=== PATIENT | male | born 1935 | race Caucasian/White ===

== ENCOUNTER 2021-02-08 13:48 | Observation (INO) | payer MEDICARE ==
[~2021-02-08] VITALS: Ht 175.3 cm; Wt 74.1 kg
[~2021-02-08 13:48] MED LIST: ATOR10TA PO; CHOL10003 PO; DEXT350P PO; OMEP20CA16 PO; [UNRECOGNIZED DRUG - CODE] PO
[2021-02-08 14:30] LABS: BASO % 0 % (0-3); EOS % 0 % (0-3); HEMATOCRIT 42.2 % (39.0-53.0); HEMOGLOBIN 14.2 g/dL (13.0-17.5); LYMPH # 2.3 x10^3/uL (1.0-4.8); LYMPH % 19 % (24-48); MEAN CORPUSCULAR HEMOGLOBIN 33 pg (25-35); MEAN CORPUSCULAR HGB CONC 34 g/dL (31-37); MEAN CORPUSCULAR VOLUME 98 fL (79-100); MONO # 1.3 x10^3/uL (0.0-1.1); MONO % 11 % (0-9); NEUT # 8.4 x10^3/uL (1.8-7.7); NEUT % 70 % (31-73); PLATELET COUNT 171 x10^3/uL (140-400); RED BLOOD COUNT 4.31 x10^6/uL (4.30-5.70); RED CELL DISTRIBUTION WIDTH 14.5 % (11.5-14.5)
[2021-02-08] MEDS ORDERED: ADENOSINE 6 MG/2 ML VIAL. IV ONE ×2 (14:30→16:30)
[2021-02-08 14:44] LABS: CALCIUM 8.3 mg/dL (8.5-10.1); CREATININE 1.5 mg/dL (0.7-1.3); GFR 44.4; POTASSIUM 3.8 mmol/L (3.5-5.1)
[2021-02-08] MEDS ORDERED: IV NORMAL SALINE 1000ML BAG 1,000 ML IV ONE (14:45)
[2021-02-08 14:49] LABS: ALBUMIN 3.4 g/dL (3.4-5.0); ALBUMIN/GLOBULIN RATIO 0.9 (1.0-1.7); TOTAL BILIRUBIN 0.7 mg/dL (0.2-1.0); TOTAL PROTEIN 7.1 g/dL (6.4-8.2)
--- NOTE | 2021-02-08 14:58 | RAD ---
CT Head W/O Contrast: History: Reason: syncope, hit head on floor / Spl. Instructions: / History: Comparison: none Axial images were obtained without contrast. There is moderate diffuse atrophy. There is no mass effect, extraaxial fluid collections or hydrocep halus. There is no gross bleed. Mild to moderate, patchy periventricular and subcortical white matte r hypoattenuation is seen. There is no focal loss of blakely-white matter distinction to suggest acute ischemia, i.e. stroke. There is a scalp hematoma posteriorly on the left Impression: No acute intracranial findings. End impression CT C-Spine without contrast: Clinical History: Reason: syncope, hit head on floor / Spl. Instructions: / History: Technique: Axial helical images of the cervical spine were obtained without contrast, axial coronal and sagittal reconstruction was performed. Findings: There is no loss of vertebral body stature. There is no prevertebral soft tissue swelling. The vert ebral bodies are well aligned. The C1-C2 relationship is normal. The visualized osseous structures a ppear normal. Evaluation of the central canal is limited without contrast. There is multiple posterio r disc bulges resulting in flattening of the thecal sac. There does not appear to be gross flattening of the cervical cord. There is marked narrowing of multiple neuroforamen. Impression: No acute findings. Clinical correlation suggested. PQRS Compliance Statement: One or more of the following individualized dose reduction techniques were utilized for this examinat ion: 1. Automated exposure control 2. Adjustment of the mA and/or kV according to patient size 3. Use of iterative reconstruction technique Electronically signed by: Hilario Hurst III, MD (02/08/2021 2:55 PM) [facility]
--- NOTE | 2021-02-08 15:15 | RAD ---
Single AP view of the chest. Comparison: None. Indication: Syncope and shortness of air Findings: The aorta is tortuous. The heart is not enlarged. There is no pneumothorax or effusion. No air space or interstitial disease. Impression: 1. No acute cardiopulmonary process. Electronically signed by: Danny Markham MD (02/08/2021 3:13 PM) [id number]
[2021-02-08] MEDS ORDERED: METOPROLOL IV PUSH 5 MG/5 ML VIAL. IVP ONE ×2 (16:00→19:45)
--- NOTE | 2021-02-08 16:33 | PHYS DOC ---
Past Medical History Past Medical History: High Cholesterol, Seizure Past Surgical History: No Surgical History Smoking Status: Former Smoker Alcohol Use: None General Adult EDM: Chief Complaint: ALTERED MENTAL STATUS HPI: HPI: Patient is a 85 year old male who was brought here by EMS from a local restaurant after he had a syncopal episode. Per EMS report patient stood up from a standing position, and then just collapsed and hit his head on the ground. Patient was confused, EMS were called, they said he was in SVT, patient was given 6 mg of adenosine IV, converted to normal sinus rhythm. Patient was still confused, denies any chest pain, denies any abdominal pain no nausea vomiting. Patient did not remember what happened. EMS brought him here for evaluation. Review of Systems: Review of Systems: Constitutional: Denies fever or chills. [] Eyes: Denies change in visual acuity. [] HENT: Denies nasal congestion or sore throat. [] Respiratory: Denies cough or shortness of breath. [] Cardiovascular: Denies chest pain or edema. [] GI: Denies abdominal pain, nausea, vomiting, bloody stools or diarrhea. [] : Denies dysuria. [] Musculoskeletal: Denies back pain or joint pain. [] Integument: Denies rash. [] Neurologic: Positive for headache, syncopal episode, denies focal weakness or numbness. [] Endocrine: Denies polyuria or polydipsia. [] Lymphatic: Denies swollen glands. [] Psychiatric: Denies depression or anxiety. [] Heart Score: C/O Chest Pain: N/A Risk Factors: Risk Factors: DM, Current or recent (<one month) smoker, HTN, HLP, family history of CAD, obesity. Risk Scores: Score 0 - 3: 2.5% MACE over next 6 weeks - Discharge Home Score 4 - 6: 20.3% MACE over next 6 weeks - Admit for Clinical Observation Score 7 - 10: 72.7% MACE over next 6 weeks - Early Invasive Strategies Current Medications: Current Medications Medications (Trade) Dose Ordered Sig/Devang Start Time Stop Time Status Last Admin Dose Admin Adenosine (Adenocard) 12 mg 1X ONCE 02/08/21 14:30 02/08/21 15:47 DC Metoprolol Tartrate (Lopressor Vial) 5 mg 1X ONCE 02/08/21 16:00 02/08/21 16:01 DC Sodium Chloride 1,000 ml @ 1,000 mls/hr 1X ONCE 02/08/21 14:45 02/08/21 15:44 DC 02/08/21 14:36 1,000 MLS/HR Allergies: Allergies: Allergies Coded Allergies Type Severity Reaction Last Updated Verified No Known Drug Allergies 06/17/14 No Physical Exam: PE: Constitutional: Well developed, well nourished, no acute distress, non-toxic appearance. [] HENT: Normocephalic, small area of skin contusion to left temporal area, bilateral external ears normal, oropharynx moist, no oral exudates, nose normal. [] Eyes: PERRLA, EOMI, conjunctiva normal, no discharge. [] Neck: Normal range of motion, no tenderness, supple, no stridor. [] Cardiovascular: Tachycardia, regular rhythm, no murmur [] Lungs & Thorax: Bilateral breath sounds clear to auscultation [] Abdomen: Bowel sounds normal, soft, no tenderness, no masses, no pulsatile masses. [] Skin: Warm, dry, no erythema, no rash. [] Back: No tenderness, no CVA tenderness. [] Extremities: No tenderness, no cyanosis, no clubbing, ROM intact, no edema. [] Neurologic: Alert and oriented X 3, normal motor function, normal sensory function, no focal deficits noted. [] Psychologic: Affect normal, judgement normal, mood normal. [] Current Patient Data: Labs: Laboratory Tests Test 02/08/21 14:05 White Blood Count 12.0 x10^3/uL (4.0-11.0) H Red Blood Count 4.31 x10^6/uL (4.30-5.70) Hemoglobin 14.2 g/dL (13.0-17.5) Hematocrit 42.2 % (39.0-53.0) Mean Corpuscular Volume 98 fL (79-100) Mean Corpuscular Hemoglobin 33 pg (25-35) Mean Corpuscular Hemoglobin Concent 34 g/dL (31-37) Red Cell Distribution Width 14.5 % (11.5-14.5) Platelet Count 171 x10^3/uL (140-400) Neutrophils (%) (Auto) 70 % (31-73) Lymphocytes (%) (Auto) 19 % (24-48) L Monocytes (%) (Auto) 11 % (0-9) H Eosinophils (%) (Auto) 0 % (0-3) Basophils (%) (Auto) 0 % (0-3) Neutrophils # (Auto) 8.4 x10^3/uL (1.8-7.7) H Lymphocytes # (Auto) 2.3 x10^3/uL (1.0-4.8) Monocytes # (Auto) 1.3 x10^3/uL (0.0-1.1) H Eosinophils # (Auto) 0.0 x10^3/uL (0.0-0.7) Basophils # (Auto) 0.0 x10^3/uL (0.0-0.2) Sodium Level 135 mmol/L (136-145) L Potassium Level 3.8 mmol/L (3.5-5.1) Chloride Level 102 mmol/L (98-107) Carbon Dioxide Level 25 mmol/L (21-32) Anion Gap 8 (6-14) Blood Urea Nitrogen 14 mg/dL (8-26) Creatinine 1.5 mg/dL (0.7-1.3) H Estimated GFR (Cockcroft-Gault) 44.4 BUN/Creatinine Ratio 9 (6-20) Glucose Level 124 mg/dL (70-99) H Calcium Level 8.3 mg/dL (8.5-10.1) L Magnesium Level 2.0 mg/dL (1.8-2.4) Total Bilirubin 0.7 mg/dL (0.2-1.0) Aspartate Amino Transferase (AST) 16 U/L (15-37) Alanine Aminotransferase (ALT) 16 U/L (16-63) Alkaline Phosphatase 48 U/L (46-116) Troponin I Quantitative < 0.017 ng/mL (0.000-0.055) Total Protein 7.1 g/dL (6.4-8.2) Albumin 3.4 g/dL (3.4-5.0) Albumin/Globulin Ratio 0.9 (1.0-1.7) L Laboratory Tests 02/08/21 14:05 Laboratory Tests 02/08/21 14:05 Vital Signs: Vital Signs Date Time Temp Pulse Resp B/P (MAP) Pulse Ox O2 Delivery O2 Flow Rate FiO2 02/08/21 13:56 98.2 150 16 96/69 (78) 99 Room Air 98.2 EKG: EKG: EKG was done at 1357, heart rate 153 beats per minutes, SVT. No ST segment elevation. Second EKG was done at 1410, heart rate 144 bpm, SVT no ST segment elevation. Her EKG was done at 1629 after he was given 6 mg of adenosine, heart rate 105 bpm sinus tachycardia, no ST segment elevation Radiology/Procedures: Radiology/Procedures: [][facility] [address] [place] [address] IMAGING REPORT Signed PATIENT: TRAMAINE KAUR ACCOUNT: [id number] : 1935 LOCATION: ER AGE: 85 SEX: M EXAM STATUS: REG ER ORD. PHYSICIAN: TOMÁS SORENSEN DO REASON: syncope, hit head on floor PROCEDURE: CT HEAD AND CERVICAL SPINE WO CT Head W/O Contrast: History: Reason: syncope, hit head on floor / Spl. Instructions: / History: Comparison: none Axial images were obtained without contrast. There is moderate diffuse atrophy. There is no mass effect, extraaxial fluid collections or hydrocephalus. There is no gross bleed. Mild to moderate, patchy periventricular and subcortical white matter hypoattenuation is seen. There is no focal loss of blakely-white matter distinction to suggest acute ischemia, i.e. stroke. There is a scalp hematoma posteriorly on the left Impression: No acute intracranial findings. End impression CT C-Spine without contrast: Clinical History: Reason: syncope, hit head on floor / Spl. Instructions: / History: Technique: Axial helical images of the cervical spine were obtained without contrast, axial coronal and sagittal reconstruction was performed. Findings: There is no loss of vertebral body stature. There is no prevertebral soft tissue swelling. The vertebral bodies are well aligned. The C1-C2 relationship is normal. The visualized osseous structures appear normal. Evaluation of the central canal is limited without contrast. There is multiple posterior disc bulges resulting in flattening of the thecal sac. There does not appear to be gross flattening of the cervical cord. There is marked narrowing of multiple neuroforamen. Impression: No acute findings. Clinical correlation suggested. PQRS Compliance Statement: One or more of the following individualized dose reduction techniques were utilized for this examination: 1. Automated exposure control 2. Adjustment of the mA and/or kV according to patient size 3. Use of iterative reconstruction technique Electronically signed by: Grace Azar III, MD (02/08/2021 2:55 PM) [facility] DICTATED and SIGNED BY: GRACE AZAR III, MD DATE: 02/08/21 [id number] [facility] [address] [place] [address] IMAGING REPORT Signed PATIENT: TRAMAINE KAUR ACCOUNT: [id number] : 1935 LOCATION: ER AGE: 85 SEX: M EXAM STATUS: REG ER ORD. PHYSICIAN: TOMÁS SORENSEN DO REASON: syncope,soa PROCEDURE: PORTABLE CHEST 1V Single AP view of the chest. Comparison: None. Indication: Syncope and shortness of air Findings: The aorta is tortuous. The heart is not enlarged. There is no pneumothorax or effusion. No air space or interstitial disease. Impression: 1. No acute cardiopulmonary process. Electronically signed by: Danny Markham MD (02/08/2021 3:13 PM) [id number] DICTATED and SIGNED BY: DANNY MARKHAM MD DATE: 02/08/21 [id number] 0 Course & Med Decision Making: Course & Med Decision Making Pertinent Labs and Imaging studies reviewed. (See chart for details) Patient is a 85-year-old male who was brought here by EMS from a local establishment after he had a syncopal episode. Patient sustained a contusion to his left forehead area, CT scan his head and C-spine did not show any acute pr oblem. Patient was confused initially, could not recognize his family member, then eventually after he was here for a while he became more oriented and recognized his family member. Patient was found to be in SVT, he was given adenosine by EMS at the scene, converted to sinus rhythm, however when patient got here he was in SVT again. Patient was given 6 mg of adenosine and he was converted to sinus rhythm, patient was found to be hypotensive, he was given 1 L normal saline. Patient felt much better. His blood pressure was normalized, heart rate was slowing down. Patient will be admitted to hospital for further evaluation and treatment, discussed with Dr. Morales who agreed to admit to his service. Critical care time was [30] minutes which includes time at bedside, spent in discussion of patient's care with specialist and/or family members, with interpretation of laboratory and/or radiological studies and is exclusive of procedures. Dragon Disclaimer: Dragon Disclaimer: This electronic medical record was generated, in whole or in part, using a voice recognition dictation system. Departure Departure Impression: Primary Impression: Syncope and collapse Additional Impressions: SVT (supraventricular tachycardia) Concussion Disposition: ADMITTED INPT THIS HOSP Admitting Physician: FLORENCE (Dr. [place]) Condition: IMPROVED Referrals: EDUAR SANTA MD (PCP) TOMÁS SORENSEN DO Feb 08, 2021 16:33
--- NOTE | 2021-02-08 17:05 | EKG ---
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
--- NOTE | 2021-02-08 17:31 | EKG ---
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
--- NOTE | 2021-02-08 17:32 | EKG ---
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
--- NOTE | 2021-02-08 17:47 | HP ---
ADMIT DATE: 02/08/2021 CHIEF COMPLAINT: Supraventricular tachycardia, syncope, mental status change. HISTORY OF PRESENT ILLNESS: The patient is a pleasant 85-year-old male who was at [employer] in [place]. He apparently developed a syncopal episode. They called the ambulance. When the ambulance arrived, the patient was in SVT at 150 beats per minute. They administered adenosine and transferred him here to the hospital. Upon arrival here, he is back in SVT. We gave him another dose of adenosine and that seemed to resolve. He is now back in sinus rhythm. I discussed the case with ER physician. We admitted the patient with consultation to Cardiology. PAST MEDICAL HISTORY: Hyperlipidemia, seizure, previous tobacco abuse, hypertension, hyperlipidemia, constipation, GERD. ALLERGIES: None. FAMILY HISTORY: Diabetes. SOCIAL HISTORY: He is retired. 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 Does not drink, smoke or take drugs. MEDICATIONS: Reviewed, please for the MRAD. REVIEW OF SYSTEMS: GENERAL: No history of weight change, weakness or fevers. SKIN: No bruising, hair changes or rashes. EYES: No blurred, double or loss of vision. NOSE AND THROAT: No history of nosebleeds, hoarseness or sore throat. HEART: No history of palpitations, chest pain or shortness of breath on exertion. LUNGS: Denies cough, hemoptysis, wheezing or shortness of breath. GASTROINTESTINAL: Denies changes in appetite, nausea, vomiting, diarrhea or constipation. GENITOURINARY: No history of frequency, urgency, hesitancy or nocturia. NEUROLOGIC: Denies history of numbness, tingling, tremor or weakness. PSYCHIATRIC: No history of panic, anxiety or depression. ENDOCRINE: No history of heat or cold intolerance, polyuria or polydipsia. EXTREMITIES: Denies muscle weakness, joint pain, pain on walking or stiffness. PHYSICAL EXAMINATION: VITALS: Within normal limits and are stable. GENERAL: No apparent distress. Alert and oriented. HEENT: Normal cephalic atraumatic, external auditory canals are patent EYES: Extraocular muscles are intact, pupils are equally round and reactive to light and accommodation MUSCULOSKELETAL: Well developed, well nourished, good range of motion ENDOCRINE: No thyromegaly was palpated LYMPHATICS: No cervical chain or axillary nodes were noted HEMATOPOIETIC: No bruising NECK: Supple, no JVD, no thyromegaly was noted. LUNGS: Clear to auscultation in all lung le without rhonchi or wheezing. HEART: RRR, S1, S2 present. Peripheral pulses intact, no obvious murmurs were noted. ABDOMEN: Soft, nontender. Positive bowel sounds no organomegaly, normal bowel sounds. EXTREMITIES: Without any cyanosis, clubbing, or edema. Pedal pulses intact, Homans sign is negative. NEUROLOGIC: Normal speech, normal tone. A & O x3, moves all extremities, no obvious focal deficits. PSYCHIATRIC: Normal affect, normal mood. Stable. SKIN: No ulcerations or rashes, good skin turgor, no jaundice. VASCULAR: Good capillary refill, neurovascular bundle appears to be intact. LABORATORY DATA: White count is 12. Sodium is 135, creatinine 1.5, glucose 124. Chest x-ray, no acute process. CT of the head negative. ASSESSMENT AND PLAN: Syncope secondary to supraventricular tachycardia with closed head trauma, hyponatremia, leukocytosis, chronic renal insufficiency, hyperglycemia. The patient has been admitted. We will consult Cardiology. Cardiac monitoring, serial enzymes, serial EKGs, echocardiogram if Cardiology agrees. Gentle IV fluids, p.r.n. adenosine, p.r.n. IV metoprolol. PROGNOSIS: Guarded. CC TIME: 33 minutes. KEVEN DHILLON DO DR: JARON/mike JOB#: [id number] / [id number]
[2021-02-08 19:00] VITALS: BP 146/88
--- NOTE | 2021-02-08 19:20 | NUR ---
Pt in SVT call placed to for further orders, order received for Lopressor iv x1.
--- NOTE | 2021-02-08 19:30 | NUR ---
Pt arrived to room 260 per wheelchair accompanied by daughter in laws, tele monitor applied to pt vs obtained and stable. Poc explained to pt and pt daughters assessment completed pt alert with confusion pt oriented to surroundings and reminded to call for assistance prior to getting oob, bed alarm set call light in reach will resume care and continue to monitor pt. Call placed to Dr. [place] for further admit orders.
--- NOTE | 2021-02-08 20:20 | NUR ---
Pt converted to sinus Rhythm prior to giving Lopressor, dose held will monitor pt.
[2021-02-08 22:41] VITALS: BP 155/80
[2021-02-09] MEDS ORDERED: CYAN100072 PO (01:37)
[2021-02-09 03:00] VITALS: BP 154/76
[2021-02-09 07:00] VITALS: BP 176/79
--- NOTE | 2021-02-09 08:35 | PDOC ---
[facility] PROGRESS NOTE Date of Service DOS: DATE: 02/09/21 TIME: 08:34 Chief Complaint Chief Complaint Supraventricular tachycardia, syncope, mental status change History of Present Illness History of Present Illness 02/09/2021 Patient seen and examined. Chart reviewed. Discussed with RN. Discussed need for cardiology consult with the patient. 02/08/2021 Mr. Irwin is a pleasant 85-year-old male who was at [employer] in [place]. He apparently developed a syncopal episode. They called the ambulance. When the ambulance arrived, the patient was in SVT at 150 beats per minute. They administered adenosine and transferred him here to the hospital. Upon arrival here, he is back in SVT. We gave him another dose of adenosine and that seemed to resolve. He is now back in sinus rhythm. I discussed the case with ER physician. We admitted the patient with consultation to Cardiology. Vitals/I&O Vitals/I&O: Vital Signs Date Time Temp Pulse Resp B/P (MAP) Pulse Ox O2 Delivery O2 Flow Rate FiO2 02/09/21 03:00 98.1 63 19 154/76 (102) 95 Room Air 98.1 I & O 02/08/21 02/08/21 02/09/21 15:00 23:00 07:00 Intake Total 1000 ml 100 ml Output Total 500 ml Balance 500 ml 100 ml Physical Exam General: Alert, Cooperative, No acute distress Heart: Regular rate Lungs: Clear Abdomen: Normal bowel sounds Extremities: No cyanosis, No edema Skin: No rashes Labs Labs: Laboratory Tests Test 02/08/21 14:05 White Blood Count 12.0 x10^3/uL (4.0-11.0) Red Blood Count 4.31 x10^6/uL (4.30-5.70) Hemoglobin 14.2 g/dL (13.0-17.5) Hematocrit 42.2 % (39.0-53.0) Mean Corpuscular Volume 98 fL (79-100) Mean Corpuscular Hemoglobin 33 pg (25-35) Mean Corpuscular Hemoglobin Concent 34 g/dL (31-37) Red Cell Distribution Width 14.5 % (11.5-14.5) Platelet Count 171 x10^3/uL (140-400) Neutrophils (%) (Auto) 70 % (31-73) Lymphocytes (%) (Auto) 19 % (24-48) Monocytes (%) (Auto) 11 % (0-9) Eosinophils (%) (Auto) 0 % (0-3) Basophils (%) (Auto) 0 % (0-3) Neutrophils # (Auto) 8.4 x10^3/uL (1.8-7.7) Lymphocytes # (Auto) 2.3 x10^3/uL (1.0-4.8) Monocytes # (Auto) 1.3 x10^3/uL (0.0-1.1) Eosinophils # (Auto) 0.0 x10^3/uL (0.0-0.7) Basophils # (Auto) 0.0 x10^3/uL (0.0-0.2) Sodium Level 135 mmol/L (136-145) Potassium Level 3.8 mmol/L (3.5-5.1) Chloride Level 102 mmol/L (98-107) Carbon Dioxide Level 25 mmol/L (21-32) Anion Gap 8 (6-14) Blood Urea Nitrogen 14 mg/dL (8-26) Creatinine 1.5 mg/dL (0.7-1.3) Estimated GFR (Cockcroft-Gault) 44.4 BUN/Creatinine Ratio 9 (6-20) Glucose Level 124 mg/dL (70-99) Calcium Level 8.3 mg/dL (8.5-10.1) Magnesium Level 2.0 mg/dL (1.8-2.4) Total Bilirubin 0.7 mg/dL (0.2-1.0) Aspartate Amino Transf (AST/SGOT) 16 U/L (15-37) Alanine Aminotransferase (ALT/SGPT) 16 U/L (16-63) Alkaline Phosphatase 48 U/L (46-116) Troponin I Quantitative < 0.017 ng/mL (0.000-0.055) Total Protein 7.1 g/dL (6.4-8.2) Albumin 3.4 g/dL (3.4-5.0) Albumin/Globulin Ratio 0.9 (1.0-1.7) Assessment and Plan Assessmemt and Plan Problems Medical Problems: (1) Concussion Status: Acute (2) SVT (supraventricular tachycardia) Status: Acute (3) Syncope and collapse Status: Acute Assessment Concussion SVT Syncope and collapse Plan Cardiac monitoring. Cardiology consult, awaiting their input. Negative chronotropic agents per cardiology. Continue home medications. Full code. Comment Review of Relevant I have reviewed the following items natalie (where applicable) has been applied. Medications: Current Medications Medications (Trade) Dose Ordered Sig/Devang Route PRN Reason Start Time Stop Time Status Last Admin Dose Admin Sodium Chloride 1,000 ml @ 1,000 mls/hr 1X ONCE IV 02/08/21 14:45 02/08/21 15:44 DC 02/08/21 14:36 Adenosine (Adenocard) 6 mg 1X ONCE IV 02/08/21 16:30 02/08/21 16:31 DC 02/08/21 16:38 Justifications for Admission Other Justification KEVEN DHILLON III DO Feb 09, 2021 08:35
--- NOTE | 2021-02-09 10:28 | NUR ---
SW following. Discussed with RN, pt from home with , room air, cardiac diet. Neurology and Cardiology consulted. RN potentially ordering PT/OT if needed. SW will continue to follow.
--- NOTE | 2021-02-09 10:41 | PDOC2 ---
TRISTEN BECKER GENETIC ENGINEER 02/09/21 1041: CARDIAC CONSULT DATE OF CONSULT Date of Consult DATE: 02/09/21 TIME: 10:32 REASON FOR CONSULT Reason for Consult: SVT REFERRING PHYSICIAN Referring Physician: Dr. Carpenter SOURCE Source: Chart review, Patient HISTORY OF PRESENT ILLNESS HISTORY OF PRESENT ILLNESS This is an 85 yo male who presented secondary to syncopal episode at local restaurant. Patient is very forgetful and unable to tell what brought him into the ED. Per [id number], patient and eat daily at local restaurant for lunch. Reportedly stood up from the table and then collapsed, hitting his head on the ground. EMS was called. Patient was confused and noted to be in SVT. Patient was given adenosine 6mg x1 and converted back to SR. Patient does not recall fall or passing out. Denies any previous h/o syncope. Denies any chest pain, palpitations, dizziness, diaphoresis, or nausea/vomiting. Went back into SVT yesterday evening, but converted back to ST without intervention. [id number] reports that he and his are very forgetful but no official diagnosis or dementia. She reports he is more confused presently than baseline. PAST MEDICAL HISTORY Cardiovascular: Hyperlipidemia CENTRAL NERVOUS SYSTEM: Dementia (?) GI: GERD PAST SURGICAL HISTORY Past Surgical History: Tonsillectomy FAMILY HISTORY Family History: Family History Unknown SOCIAL HISTORY Smoke: Quit ALCOHOL: none Drugs: None Lives: with Family CURRENT MEDICATIONS CURRENT MEDICATIONS Current Medications Medications (Trade) Dose Ordered Sig/Devang Route PRN Reason Start Time Stop Time Status Last Admin Dose Admin Sodium Chloride 1,000 ml @ 1,000 mls/hr 1X ONCE IV 02/08/21 14:45 02/08/21 15:44 DC 02/08/21 14:36 Adenosine (Adenocard) 6 mg 1X ONCE IV 02/08/21 16:30 02/08/21 16:31 DC 02/08/21 16:38 ALLERGIES ALLERGIES: Coded Allergies: No Known Drug Allergies (Unverified , 06/17/14) ROS Review of System 14 point ROS conducted with pertinent positives noted above in HPI, although limited due to mentation PHYSICAL EXAM General: Alert, Cooperative, No acute distress, Other (oriented to person and place) HEENT: Atraumatic Lungs: Clear to auscultation Heart: Regular rate (SR) Abdomen: Soft, No tenderness Extremities: No edema, Normal pulses Skin: No significant lesion Neuro: Normal speech, Sensation intact Psych/Mental Status: Mood NL, Other (forgetful, confused ) MUSCULOSKELETAL: Osteoarthritic changes both hands VITALS/I&O VITALS/I&O: Vital Signs Date Time Temp Pulse Resp B/P (MAP) Pulse Ox O2 Delivery O2 Flow Rate FiO2 02/09/21 07:00 98.0 75 18 176/79 (111) 94 Room Air 98.0 I & O 02/08/21 02/08/21 02/09/21 15:00 23:00 07:00 Intake Total 1000 ml 100 ml Output Total 500 ml Balance 500 ml 100 ml LABS Lab: Laboratory Tests Test 02/08/21 14:05 White Blood Count 12.0 x10^3/uL (4.0-11.0) H Red Blood Count 4.31 x10^6/uL (4.30-5.70) Hemoglobin 14.2 g/dL (13.0-17.5) Hematocrit 42.2 % (39.0-53.0) Mean Corpuscular Volume 98 fL (79-100) Mean Corpuscular Hemoglobin 33 pg (25-35) Mean Corpuscular Hemoglobin Concent 34 g/dL (31-37) Red Cell Distribution Width 14.5 % (11.5-14.5) Platelet Count 171 x10^3/uL (140-400) Neutrophils (%) (Auto) 70 % (31-73) Lymphocytes (%) (Auto) 19 % (24-48) L Monocytes (%) (Auto) 11 % (0-9) H Eosinophils (%) (Auto) 0 % (0-3) Basophils (%) (Auto) 0 % (0-3) Neutrophils # (Auto) 8.4 x10^3/uL (1.8-7.7) H Lymphocytes # (Auto) 2.3 x10^3/uL (1.0-4.8) Monocytes # (Auto) 1.3 x10^3/uL (0.0-1.1) H Eosinophils # (Auto) 0.0 x10^3/uL (0.0-0.7) Basophils # (Auto) 0.0 x10^3/uL (0.0-0.2) Sodium Level 135 mmol/L (136-145) L Potassium Level 3.8 mmol/L (3.5-5.1) Chloride Level 102 mmol/L (98-107) Carbon Dioxide Level 25 mmol/L (21-32) Anion Gap 8 (6-14) Blood Urea Nitrogen 14 mg/dL (8-26) Creatinine 1.5 mg/dL (0.7-1.3) H Estimated GFR (Cockcroft-Gault) 44.4 BUN/Creatinine Ratio 9 (6-20) Glucose Level 124 mg/dL (70-99) H Calcium Level 8.3 mg/dL (8.5-10.1) L Magnesium Level 2.0 mg/dL (1.8-2.4) Total Bilirubin 0.7 mg/dL (0.2-1.0) Aspartate Amino Transferase (AST) 16 U/L (15-37) Alanine Aminotransferase (ALT) 16 U/L (16-63) Alkaline Phosphatase 48 U/L (46-116) Troponin I Quantitative < 0.017 ng/mL (0.000-0.055) Total Protein 7.1 g/dL (6.4-8.2) Albumin 3.4 g/dL (3.4-5.0) Albumin/Globulin Ratio 0.9 (1.0-1.7) L Laboratory Tests 02/08/21 14:05 Laboratory Tests 02/08/21 14:05 ASSESSMENT/PLAN ASSESSMENT/PLAN 1. Syncopal episode; CT head without acute findings. Most probably secondary to #2. 2. PSVT; converted to SR follow adenosine 6mg IV x1. Back into SVT yesterday evening, but converted spontaneously 3. Hyperlipidemia 4. GERD 5. NINA vs CKD 6. Metabolic encephalopathy vs dementia Recommendations Echo to assess LV systolic function Lipids TSH Start metoprolol for rate control Monitor tele Consider outpatient event monitor and possible ischemic evaluation Check UA to r/o UTI JULIO CESAR DEVRIES MD 02/09/21 6515: CARDIAC CONSULT ASSESSMENT/PLAN ASSESSMENT/PLAN Patient seen and examined I agree with our nurse practitioners assessment and plan. Syncopal episode; CT head without acute findings. PSVT; converted to SR follow adenosine 6mg IV x1. Back into SVT yesterday ev ening, but converted spontaneously. Starting beta-blockers. Checking echo and TSH, continue telemetry. Probable outpatient monitoring. Hyperlipidemia. Lipid panel pending. NINA vs CKD. Monitoring lab. Metabolic encephalopathy vs dementia TRISTEN BECKER APRN Feb 09, 2021 10:41 JULIO CESAR DEVRIES MD Feb 09, 2021 17:34
[2021-02-09 11:00] VITALS: BP 168/83
[2021-02-09] MEDS: METOPROLOL TART IMMED RELEASE 25 MG TABLET. PO SCH ×2 (11:06→21:37)
--- NOTE | 2021-02-09 12:17 | PDOC2 ---
NEUROLOGY CONSULT Date of Service DOS: DATE: 02/09/21 TIME: 12:12 History of Present Illness History of Present Illness The patient is an 85-year-old right-handed male who was at a restaurant. He stood up from a seated position and collapsed, hitting his head, but he denies any loss of consciousness. He was confused. Paramedics found the patient in supraventricular tachycardia, he was given 6 mg of adenosine IV, converted to no rmal sinus rhythm. He required a repeat adenosine dose later. He has had no further supraventricular tachycardia. There is no history of stroke or prior injury to the head. He did have seizures as a child. Past Medical History Cardiovascular: HTN, Hyperlipidemia CENTRAL NERVOUS SYSTEM: Seizure (as a child) Past Surgical History Past Surgical History: Tonsillectomy, Other (Right hand) Family History Family History: No pertinent hx Social History Social History , no alcohol or tobacco Current Medications Current Medications Current Medications Adenosine (Adenocard) 12 mg 1X ONCE IV ; Start 02/08/21 at 14:30; Stop 02/08/21 at 15:47; Status DC Sodium Chloride 1,000 ml @ 1,000 mls/hr 1X ONCE IV Last administered on 02/08/21at 14:36; Start 02/08/21 at 14:45; Stop 02/08/21 at 15:44; Status DC Metoprolol Tartrate (Lopressor Vial) 5 mg 1X ONCE IVP ; Start 02/08/21 at 16:00; Stop 02/08/21 at 16:01; Status DC Adenosine (Adenocard) 6 mg 1X ONCE IV Last administered on 02/08/21at 16:38; Start 02/08/21 at 16:30; Stop 02/08/21 at 16:31; Status DC Metoprolol Tartrate (Lopressor Vial) 5 mg 1X ONCE IVP ; Start 02/08/21 at 19:45; Stop 02/08/21 at 19:46; Status DC Metoprolol Tartrate (Lopressor) 25 mg BID PO Last administered on 02/09/21at 11:06; Start 02/09/21 at 11:00 Active Scripts Active Reported B-12 (Cyanocobalamin (Vitamin B-12)) 1,000 Mcg Tablet 1 Tab PO DAILY 30 Days Fiber (Dextrin) 350 Gm Powder 350 Gm PO DAILY Vitamin D3 (Cholecalciferol (Vitamin D3)) 1,000 Unit Tablet 1 Tab PO DAILY Allergies Allergies: Coded Allergies: No Known Drug Allergies (Unverified , 06/17/14) ROS Review of System Negative for fever, chills, weight loss, shortness of breath, chest pain, indigestion, hematochezia, melena, and dysuria. Full 14-point review of systems is negative. Physical Exam Physical Examination General: Well-developed, well-nourished white male in no acute distress HEENT: Normocephalic. Small ecchymosis lateral to the left eye. Temporal arteriespulsatile and nontender. Neck: Supple without bruit, no meningismus Musculoskeletal: Stability:see neurologic. Gait exam:see neurologic. Tone:see neurologic.Strength:see neurologic. Neurological: Mental Status:intact, orientation, memory, attention span/concentration, language, fund of knowledge normal. Cranial Nerves:Pupils equal and reactive to light, extraocular movements areintact, visual le are full to confrontation. Facial sensation is normal. There is no facial asymmetry. Vestibulo-ocular reflex is intact. Palate elevates and tongue protrudes in midline. All other cranial related problems are negative except as mentioned before.Reflexes:2+ and symmetric with flexor plantar responses. Motor:5/5 strength with normal tone and bulk. Coordination:Finger-nose finger and hife-vh-zdye testing are normal. Rapid alternating movements and fine finger movements are intact. Gait: Not tested. Sensory:Normal pinprick, vibration, light touch, proprioception. Vitals VITALS Vital Signs Date Time Temp Pulse Resp B/P (MAP) Pulse Ox O2 Delivery O2 Flow Rate FiO2 02/09/21 11:06 75 176/79 02/09/21 07:00 98.0 18 94 Room Air 98.0 Labs Labs Laboratory Tests Test 02/08/21 14:05 White Blood Count 12.0 x10^3/uL (4.0-11.0) Red Blood Count 4.31 x10^6/uL (4.30-5.70) Hemoglobin 14.2 g/dL (13.0-17.5) Hematocrit 42.2 % (39.0-53.0) Mean Corpuscular Volume 98 fL (79-100) Mean Corpuscular Hemoglobin 33 pg (25-35) Mean Corpuscular Hemoglobin Concent 34 g/dL (31-37) Red Cell Distribution Width 14.5 % (11.5-14.5) Platelet Count 171 x10^3/uL (140-400) Neutrophils (%) (Auto) 70 % (31-73) Lymphocytes (%) (Auto) 19 % (24-48) Monocytes (%) (Auto) 11 % (0-9) Eosinophils (%) (Auto) 0 % (0-3) Basophils (%) (Auto) 0 % (0-3) Neutrophils # (Auto) 8.4 x10^3/uL (1.8-7.7) Lymphocytes # (Auto) 2.3 x10^3/uL (1.0-4.8) Monocytes # (Auto) 1.3 x10^3/uL (0.0-1.1) Eosinophils # (Auto) 0.0 x10^3/uL (0.0-0.7) Basophils # (Auto) 0.0 x10^3/uL (0.0-0.2) Sodium Level 135 mmol/L (136-145) Potassium Level 3.8 mmol/L (3.5-5.1) Chloride Level 102 mmol/L (98-107) Carbon Dioxide Level 25 mmol/L (21-32) Anion Gap 8 (6-14) Blood Urea Nitrogen 14 mg/dL (8-26) Creatinine 1.5 mg/dL (0.7-1.3) Estimated GFR (Cockcroft-Gault) 44.4 BUN/Creatinine Ratio 9 (6-20) Glucose Level 124 mg/dL (70-99) Calcium Level 8.3 mg/dL (8.5-10.1) Magnesium Level 2.0 mg/dL (1.8-2.4) Total Bilirubin 0.7 mg/dL (0.2-1.0) Aspartate Amino Transf (AST/SGOT) 16 U/L (15-37) Alanine Aminotransferase (ALT/SGPT) 16 U/L (16-63) Alkaline Phosphatase 48 U/L (46-116) Troponin I Quantitative < 0.017 ng/mL (0.000-0.055) Total Protein 7.1 g/dL (6.4-8.2) Albumin 3.4 g/dL (3.4-5.0) Albumin/Globulin Ratio 0.9 (1.0-1.7) Laboratory Tests Test 02/08/21 14:05 White Blood Count 12.0 x10^3/uL (4.0-11.0) Red Blood Count 4.31 x10^6/uL (4.30-5.70) Hemoglobin 14.2 g/dL (13.0-17.5) Hematocrit 42.2 % (39.0-53.0) Mean Corpuscular Volume 98 fL (79-100) Mean Corpuscular Hemoglobin 33 pg (25-35) Mean Corpuscular Hemoglobin Concent 34 g/dL (31-37) Red Cell Distribution Width 14.5 % (11.5-14.5) Platelet Count 171 x10^3/uL (140-400) Neutrophils (%) (Auto) 70 % (31-73) Lymphocytes (%) (Auto) 19 % (24-48) Monocytes (%) (Auto) 11 % (0-9) Eosinophils (%) (Auto) 0 % (0-3) Basophils (%) (Auto) 0 % (0-3) Neutrophils # (Auto) 8.4 x10^3/uL (1.8-7.7) Lymphocytes # (Auto) 2.3 x10^3/uL (1.0-4.8) Monocytes # (Auto) 1.3 x10^3/uL (0.0-1.1) Eosinophils # (Auto) 0.0 x10^3/uL (0.0-0.7) Basophils # (Auto) 0.0 x10^3/uL (0.0-0.2) Sodium Level 135 mmol/L (136-145) Potassium Level 3.8 mmol/L (3.5-5.1) Chloride Level 102 mmol/L (98-107) Carbon Dioxide Level 25 mmol/L (21-32) Anion Gap 8 (6-14) Blood Urea Nitrogen 14 mg/dL (8-26) Creatinine 1.5 mg/dL (0.7-1.3) Estimated GFR (Cockcroft-Gault) 44.4 BUN/Creatinine Ratio 9 (6-20) Glucose Level 124 mg/dL (70-99) Calcium Level 8.3 mg/dL (8.5-10.1) Magnesium Level 2.0 mg/dL (1.8-2.4) Total Bilirubin 0.7 mg/dL (0.2-1.0) Aspartate Amino Transf (AST/SGOT) 16 U/L (15-37) Alanine Aminotransferase (ALT/SGPT) 16 U/L (16-63) Alkaline Phosphatase 48 U/L (46-116) Troponin I Quantitative < 0.017 ng/mL (0.000-0.055) Total Protein 7.1 g/dL (6.4-8.2) Albumin 3.4 g/dL (3.4-5.0) Albumin/Globulin Ratio 0.9 (1.0-1.7) Images Images CT Head W/O Contrast: History: Reason: syncope, hit head on floor / Spl. Instructions: / History: Comparison: none Axial images were obtained without contrast. There is moderate diffuse atrophy. There is no mass effect, extraaxial fluid collections or hydrocephalus. There is no gross bleed. Mild to moderate, patchy periventricular and subcortical white matter hypoattenuation is seen. There is no focal loss of blakely-white matter distinction to suggest acute ischemia, i.e. stroke. There is a scalp hematoma posteriorly on the left Impression: No acute intracranial findings. End impression CT C-Spine without contrast: Clinical History: Reason: syncope, hit head on floor / Spl. Instructions: / History: Technique: Axial helical images of the cervical spine were obtained without contrast, axial coronal and sagittal reconstruction was performed. Findings: There is no loss of vertebral body stature. There is no prevertebral soft tissue swelling. The vertebral bodies are well aligned. The C1-C2 relationship is normal. The visualized osseous structures appear normal. Evaluation of the central canal is limited without contrast. There is multiple posterior disc bulges resulting in flattening of the thecal sac. There does not appear to be gross flattening of the cervical cord. There is marked narrowing of multiple neuroforamen. Impression: No acute findings. Clinical correlation suggested. Assessment/Plan Assessment/Plan Impression: Syncope, although probably does near-syncope related to supraventricular tachycardia, no evidence of any primary neurological issue Mild concussion, small ecchymosis lateral to the left orbit. Note negative head and cervical spine CT scans Recommendations: No additional neurological work-up required As per cardiology I will follow loosely while here in the hospital. Thank you for letting me help with the patient's care. TRAMAINE HOANG MD Feb 09, 2021 12:17
[2021-02-09 12:33] LABS: CALCIUM 8.8 mg/dL (8.5-10.1); CREATININE 1.3 mg/dL (0.7-1.3); GFR 52.3; MAGNESIUM 2.2 mg/dL (1.8-2.4); POTASSIUM 4.2 mmol/L (3.5-5.1)
[2021-02-09 12:37] LABS: CHOLESTEROL/HDL RATIO 2.4
[2021-02-09 15:00] VITALS: BP 151/84
--- NOTE | 2021-02-09 19:25 | NUR ---
Pt in room standing at side of bed, pt confused and looking for his , pt reoriented to surroundings pt denied pain at this time pt agitated and pulling monitor off monitor applied will resume care and continue to monitor pt.
[2021-02-09 19:30] VITALS: BP 158/75
[2021-02-09 20:59] LABS: BILIRUBIN,URINE NEGATIVE (NEG); CLARITY,URINE CLEAR; COLOR,URINE YELLOW; NITRITE,URINE NEGATIVE (NEG); PH,URINE 6.5 (<5.0-8.0); PROTEIN,URINE NEGATIVE (NEG-TRACE)
[2021-02-09 21:09] LABS: RBC,URINE OCC /HPF (0-2); WBC,URINE 0 /HPF (0-4)
[2021-02-09 21:10] LABS: BACTERIA,URINE 0 /HPF (0-FEW)
[2021-02-09] MEDS ORDERED: LORazepam 0.5 MG TABLET PO PRN (21:30)
[2021-02-09 22:15] VITALS: BP 158/97
[2021-02-10 02:44] VITALS: BP 148/76
[2021-02-10 07:00] VITALS: BP 153/86
[2021-02-10] MEDS ORDERED: ASPIRIN ENTERIC COATED 81 MG TABLET.DR. PO SCH (08:00)
[2021-02-10] MEDS: METOPROLOL TART IMMED RELEASE 25 MG TABLET. PO SCH (09:11)
--- NOTE | 2021-02-10 10:36 | PDOC ---
TRISTEN BECKER QUILLER MACHINE FIXER 02/10/21 1036: CARDIO Progress Notes Date and Time Date of Service 02/10/21 Time of Evaluation 1020 Subjective Subjective: No Chest Pain, No shortness of breath, No Palpitations, No Dizziness, Other (1:1) Vitals Vitals Vital Signs Date Time Temp Pulse Resp B/P (MAP) Pulse Ox O2 Delivery O2 Flow Rate FiO2 02/10/21 09:11 72 153/86 02/10/21 08:00 Room Air 02/10/21 07:00 98.4 18 96 98.4 Weight Weight [ ] Input and Output Intake and Output Intake and Output 02/10/21 07:00 Intake Total 1650 ml Output Total 750 ml Balance 900 ml Intake Oral 1650 ml Output Urine Total 750 ml # Voids 7 Laboratory Labs Laboratory Tests Test 02/09/21 11:45 02/09/21 19:55 Sodium Level 136 mmol/L (136-145) Potassium Level 4.2 mmol/L (3.5-5.1) Chloride Level 103 mmol/L (98-107) Carbon Dioxide Level 26 mmol/L (21-32) Anion Gap 7 (6-14) Blood Urea Nitrogen 13 mg/dL (8-26) Creatinine 1.3 mg/dL (0.7-1.3) Estimated GFR (Cockcroft-Gault) 52.3 Glucose Level 86 mg/dL (70-99) Calcium Level 8.8 mg/dL (8.5-10.1) Magnesium Level 2.2 mg/dL (1.8-2.4) Troponin I Quantitative < 0.017 ng/mL (0.000-0.055) Triglycerides Level 66 mg/dL (0-150) Cholesterol Level 179 mg/dL (0-200) LDL Cholesterol, Calculated 91 mg/dL (0-100) VLDL Cholesterol, Calculated 13 mg/dL (0-40) Non-HDL Cholesterol Calculated 104 mg/dL (0-129) HDL Cholesterol 75 mg/dL (40-60) Cholesterol/HDL Ratio 2.4 Thyroid Stimulating Hormone (TSH) 1.766 uIU/mL (0.358-3.74) Urine Collection Type Void Urine Color Yellow Urine Clarity Clear Urine pH 6.5 (<5.0-8.0) Urine Specific [place] <=1.005 (1.000-1.030) Urine Protein Negative mg/dL (NEG-TRACE) Urine Glucose (UA) Negative mg/dL (NEG) Urine Ketones (Stick) Negative mg/dL (NEG) Urine Blood Negative (NEG) Urine Nitrite Negative (NEG) Urine Bilirubin Negative (NEG) Urine Urobilinogen Dipstick 1.0 mg/dL (0.2 mg/dL) Urine Leukocyte Esterase Negative (NEG) Urine RBC Occ /HPF (0-2) Urine WBC 0 /HPF (0-4) Urine Squamous Epithelial Cells None /LPF Urine Bacteria 0 /HPF (0-FEW) Physical Exam HEENT: Neck Supple W Full Motion Chest: Symmetric LUNGS: Clear to Auscultation Heart: RRR Abdomen: Soft N/T Extremities: No Edema Neurology: alert, follow commands, confused, other (anxious) Assessment Assessment 1. Syncopal episode; CT head without acute findings. Most probably secondary to #2. 2. PSVT; converted to SR follow adenosine 6mg IV x1. TSH WNL. Maintaining SR wtih metoprolol. Mild bradycardia noted overnight with lowest HR of 46. No pauses. HR maintaining in 65-70 range while awake. No further SVT overnight 3. Hyperlipidemia 4. GERD 5. NINA vs CKD 6. Metabolic encephalopathy vs dementia; forgetful, confused. 1:1 status Recommendations Echo today to assess LV systolic function Continue metoprolol for rate control Outpatient event monitor arranged Consider outpatient ischemic evaluation Follow up with Dr. Devries has been arranged Justicifation of Admission Dx: Justifications for Admission: Justification of Admission Dx: Yes CHF: Cardiac Arrhythmias (SVT) JULIO CESAR DEVRIES MD 02/10/211812: CARDIO Progress Notes Assessment Assessment Patient seen and evaluated I agree with our nurse practitioners assessment and plan. Syncopal episode; CT head without acute findings. PSVT; converted to SR follow adenosine 6mg IV x1. TSH WNL. Maintaining SR wtih metoprolol. Mild bradycardia noted overnight with lowest HR of 46. No pauses. HR maintaining in 65-70 range while awake. No further SVT overnight. Continue beta-derick. Outpatient monitoring. Office follow-up. Hyperlipidemia. Continue present treatment. GERD continue present treatment. CKD Metabolic encephalopathy vs dementia; forgetful, confused. TRISTEN BECKER APRN Feb 10, 2021 10:36 JULIO CESAR DEVRIES MD Feb 10, 2021 18:13
--- NOTE | 2021-02-10 10:54 | PDOC ---
[facility] PROGRESS NOTE Date of Service DOS: DATE: 02/10/21 TIME: 10:50 Chief Complaint Chief Complaint Supraventricular tachycardia, syncope, mental status change History of Present Illness History of Present Illness 02/10/2021 Patient seen and examined at bedside. He is pleasantly confused, thought it was 2001. Chart reviewed. Discussed with RN Patient getting echocardiogram today to assess LV systolic function. 02/09/2021 Patient seen and examined. Chart reviewed. Discussed with RN. Discussed need for cardiology consult with the patient. 02/08/2021 Mr. Irwin is a pleasant 85-year-old male who was at [employer] in [place]. He apparently developed a syncopal episode. They called the ambulance. When the ambulance arrived, the patient was in SVT at 150 beats per minute. They administered adenosine and transferred him here to the hospital. Upon arrival here, he is back in SVT. We gave him another dose of adenosine and that seemed to resolve. He is now back in sinus rhythm. I discussed the case with ER physician. We admitted the patient with consultation to Cardiology. Vitals/I&O Vitals/I&O: Vital Signs Date Time Temp Pulse Resp B/P (MAP) Pulse Ox O2 Delivery O2 Flow Rate FiO2 02/10/21 09:11 72 153/86 02/10/21 08:00 Room Air 02/10/21 07:00 98.4 18 96 98.4 I & O 02/09/21 02/09/21 02/10/21 15:00 23:00 07:00 Intake Total 1000 ml 650 ml 0 ml Output Total 750 ml Balance 1000 ml -100 ml 0 ml Physical Exam General: Alert, Cooperative, No acute distress, Other (oriented to person and place) Heart: Regular rate (SR) Lungs: Clear Abdomen: Soft, No tenderness Extremities: No edema, Normal pulses Skin: No rashes Labs Labs: Laboratory Tests Test 02/09/21 11:45 02/09/21 19:55 Sodium Level 136 mmol/L (136-145) Potassium Level 4.2 mmol/L (3.5-5.1) Chloride Level 103 mmol/L (98-107) Carbon Dioxide Level 26 mmol/L (21-32) Anion Gap 7 (6-14) Blood Urea Nitrogen 13 mg/dL (8-26) Creatinine 1.3 mg/dL (0.7-1.3) Estimated GFR (Cockcroft-Gault) 52.3 Glucose Level 86 mg/dL (70-99) Calcium Level 8.8 mg/dL (8.5-10.1) Magnesium Level 2.2 mg/dL (1.8-2.4) Troponin I Quantitative < 0.017 ng/mL (0.000-0.055) Triglycerides Level 66 mg/dL (0-150) Cholesterol Level 179 mg/dL (0-200) LDL Cholesterol, Calculated 91 mg/dL (0-100) VLDL Cholesterol, Calculated 13 mg/dL (0-40) Non-HDL Cholesterol Calculated 104 mg/dL (0-129) HDL Cholesterol 75 mg/dL (40-60) Cholesterol/HDL Ratio 2.4 Thyroid Stimulating Hormone (TSH) 1.766 uIU/mL (0.358-3.74) Urine Collection Type Void Urine Color Yellow Urine Clarity Clear Urine pH 6.5 (<5.0-8.0) Urine Specific [place] <=1.005 (1.000-1.030) Urine Protein Negative mg/dL (NEG-TRACE) Urine Glucose (UA) Negative mg/dL (NEG) Urine Ketones (Stick) Negative mg/dL (NEG) Urine Blood Negative (NEG) Urine Nitrite Negative (NEG) Urine Bilirubin Negative (NEG) Urine Urobilinogen Dipstick 1.0 mg/dL (0.2 mg/dL) Urine Leukocyte Esterase Negative (NEG) Urine RBC Occ /HPF (0-2) Urine WBC 0 /HPF (0-4) Urine Squamous Epithelial Cells None /LPF Urine Bacteria 0 /HPF (0-FEW) Assessment and Plan Assessmemt and Plan Problems Medical Problems: (1) Concussion Status: Acute (2) SVT (supraventricular tachycardia) Status: Acute (3) Syncope and collapse Status: Acute Assessment Concussion SVT Metabolic Encephalopathy Syncope and collapse Plan Continue PT/OT Continue home medications DVT prophylaxis Full code Await results of echocardiogram Comment Review of Relevant I have reviewed the following items natalie (where applicable) has been applied. Medications: Current Medications Medications (Trade) Dose Ordered Sig/Devang Route PRN Reason Start Time Stop Time Status Last Admin Dose Admin Metoprolol Tartrate (Lopressor) 25 mg BID PO 02/09/21 11:00 02/10/21 09:11 Aspirin (Ecotrin) 81 mg [id number] PO 4/8/21 08:00 02/10/21 09:11 Lorazepam (Ativan) 0.25 mg PRN Q6HRS PRN PO ANXIETY / AGITATION 02/09/21 21:30 02/09/21 21:36 Justifications for Admission Other Justification KEVEN DHILLON III DO Feb 10, 2021 10:54
[2021-02-10 11:00] VITALS: BP 105/71
[2021-02-10] MEDS ORDERED: METO25TA4 PO (13:41)
[2021-02-10] MEDS ORDERED: ASPI-886 PO (13:41)
--- NOTE | 2021-02-10 13:42 | SNU/HH DC ---
DISCHARGE WITH HOME HEALTH DISCHARGE INFORMATION: Discharge Date: Feb 10, 2021 Final Diagnosis: Problems Medical Problems: (1) Concussion Status: Acute (2) SVT (supraventricular tachycardia) Status: Acute (3) Syncope and collapse Status: Acute Condition on Discharge: Stable CODE STATUS: Code Status: Full HOME HEALTH: Face to Face: I certify this patient is under my care and that I, or a nurse practitioner or physician's certified physician assistant working with me, had a face to face encounter that meets the physician face to face encounter requirements with this patient on []. Medical Complications: HTN Fpc For: Assess Cardiopulm Status, Assess & Educate Safety, Assess/Skilled Observatio, Medication Management RN For Eval/Treatment: Yes Physical Therapy For: Evalulation/Treatment Occupational Therapy For: Evaluation/Treatment Speech Language Pathology For: Evaluation/Treatment Home Health Aide For: Self-care ADVERTISING MATERIAL DISTRIBUTOR For: Community Resources Pt Meets Homebound Status: Frequent falls w/ injury, Limited distance walking POST DISCHARGE ORDERS: Activity Instructions for Disc: No restrictions, Activity as tolerated Weight Bearing Status after Di: No restrictions, As tolerated Bathing Instructions: Shower-keep dressing dry, No Tub Bath until see DIET AFTER DISCHARGE: Cardiac CHECKS AFTER DISCHARGE: Checks after discharge: Check blood press - daily, Check your Temp as needed FOLLOW-UP: Follow up with: Dr. Makenna Eubanks March 24 at 8:45am Follow Up With: Primary Doctor in 1-2 weeks. TREATMENT/EQUIPMENT ORDERS: Adaptive Equipment Issued: None CERTIFICATION STATEMENT: Certification Statement: Certification Statement: Based on the above finding, I certify that this patient is confined to the home and needs intermittent mcfp care, physical therapy and/or speech therapy, or continues to need occupational therapy.~ This patient is under my care, and I have initiated the establishment of the plan of care.~ This patient will be followed by myself or a community physician who will periodically review the plan of care. Home Meds Active Scripts Aspirin (ASPIRIN EC) 81 Mg Tablet., 81 MG PO DAILYWBKFT for heart for 30 Days, #30 TAB.SR Prov:KAYCEE AIKEN MD 02/10/21 Metoprolol Tartrate (METOPROLOL TARTRATE) 25 Mg Tablet, 25 MG PO BID for heart for 30 Days, #60 TAB Prov:KAYCEE AIKEN MD 02/10/21 Reported Medications Cyanocobalamin (Vitamin B-12) (B-12) 1,000 Mcg Tablet, 1 TAB PO DAILY for for 30 Days, #30 TAB 0 Refills 02/09/21 Dextrin (FIBER) 350 Gm Powder, 350 GM PO DAILY 06/17/14 Cholecalciferol (Vitamin D3) (VITAMIN D3) 1,000 Unit Tablet, 1 TAB PO DAILY, #30 TAB 5 Refills 06/17/14 KAYCEE AIKEN MD Feb 10, 2021 13:42
--- NOTE | 2021-02-10 13:52 | NUR ---
SS following for discharge planning. SS reviewed pt chart and discussed with pt RN. Pt is from home with family and is currently on room air. PT/OT recommended home with home healthcare. Pt confused. SS contacted pt's family and discussed home healthcare and discharge planning. Pt's family agreeable to home healthcare with no preference of company. Discharge orders received for home healthcare. SS phoned and faxed discharge orders and referral to [facility], ; fax [phone]. Pt's RN notified.
--- NOTE | 2021-02-10 14:15 | NUR ---
Discharge Note: TRAMAINE KAUR Discharge instructions and discharge home medications reviewed with Patient and Family Member and a copy given. All questions have been answered and understanding verbalized. Patient given information on follow up appointment with Cardiology. The following instructions and handouts were given: Supraventricular Tachycardia, Syncope, New medications: Aspirin and Metoprolol Tartrate Discontinued lines and drains: Peripheral IV intact. Patient discharged to Home w/services with Family Member via [employer]
--- NOTE | 2021-02-10 16:53 | CARD ---
MR#: [id number] Date of Study: 02/10/2021 Ordering Physician: TRISTEN BECKER, Referring Physician: TRISTEN BECKER, Tech: Elsa Ray [facility] APPROVED REPORT EXAM: Two-dimensional and M-mode echocardiogram with Doppler and color Doppler. Other Information Quality : AverageHR: 56bpm Rhythm : NSR INDICATION Syncope RISK FACTORS Hypertension Hyperlipidemia 2D DIMENSIONS Left Atrium(2D)4.6 (1.6-4.0cm)IVSd1.1 (0.7-1.1cm) Aortic Root(2D)4.0 (2.0-3.7cm)LVDd4.6 (3.9-5.9cm) LVOT Diameter2.5 (1.8-2.4cm)PWd1.1 (0.7-1.1cm) LVDs3.0 (2.5-4.0cm)FS (%) 34.8 % SV62.2 mlLVEF(%)64.1 (>50%) Aortic Valve AoV Peak Antonio.134.0cm/sAoV VTI24.8cm AO Peak GR.7.2mmHgLVOT Peak Antonio.73.6cm/s LVOT VTI 15.45cmAO Mean GR.4mmHg IRMA (VMAX)2.61qf1WMW (VTI)3.16cm2 Mitral Valve MV E Qjeoywiu03.4cm/sMV DECEL [id number] MV A Qxxtwlcl87.1cm/sMV SVJ77ft E/A Ratio0.7MVA (PHT)2.54cm2 TDI E/Lateral E'5.9E/Medial E'5.7 Pulmonary Valve PV Peak Bdmwomze28.2cm/sPV Peak Grad.3mmHg Tricuspid Valve TR P. Qkfiopdn112zt/sTR Peak Gr.25mmHg LEFT VENTRICLE The left ventricle is normal size. There is mild concentric left ventricular hypertrophy. The left ve ntricular systolic function is low normal. Estimated ejection fraction is 50%. There is normal LV se gmental wall motion. Transmitral Doppler flow pattern is Grade I-abnormal relaxation pattern. RIGHT VENTRICLE The right ventricle is normal size. There is normal right ventricular wall thickness. The right ventr icular systolic function is normal. ATRIA The left atrium size is normal. The right atrium size is normal. The interatrial septum is intact wit h no evidence for an atrial septal defect or patent foramen ovale as noted on 2-D or Doppler imaging. AORTIC VALVE The aortic valve is thickened but opens well. Doppler and Color Flow revealed no significant aortic r egurgitation. There is no significant aortic valvular stenosis. MITRAL VALVE The mitral valve is normal in structure and function. There is no evidence of mitral valve prolapse. There is no mitral valve stenosis. Doppler and Color-flow revealed mild to moderate mitral regurgitat ion. TRICUSPID VALVE The tricuspid valve is normal in structure and function. Doppler and Color Flow revealed mild tricusp id regurgitation. Estimated PAP 25 mmHg. There is no tricuspid valve stenosis. PULMONIC VALVE The pulmonary valve is normal in structure and function. Doppler and Color Flow revealed mild pulmoni c valvular regurgitation. GREAT VESSELS The aortic root is mildly enlarged. The ascending aorta is mildly dilated. The IVC is normal in size and collapses >50% with inspiration. PERICARDIAL EFFUSION There is no evidence of significant pericardial effusion. Critical Notification Critical Value: No <Conclusion> The left ventricle is normal size. The left ventricular systolic function is low normal. Estimated ejection fraction is 50%. There is mild concentric left ventricular hypertrophy. Doppler and Color Flow revealed no significant aortic regurgitation. There is no significant aortic valvular stenosis. Doppler and Color-flow revealed mild to moderate mitral regurgitation. Doppler and Color Flow revealed mild tricuspid regurgitation. Estimated PAP 25 mmHg. The aortic root is mildly enlarged. The ascending aorta is mildly dilated. Signed by : Jean Paul Zhang MD Electronically Approved : 02/10/2021 16:52:48
--- NOTE | 2021-02-11 14:38 | DS ---
DATE OF DISCHARGE: 02/10/2021 ADMISSION DIAGNOSES: Supraventricular tachycardia, closed head injury, hyponatremia, leukocytosis, chronic renal insufficiency. DISCHARGE DIAGNOSIS: Resolving supraventricular tachycardia. CONSULTATIONS: Neurology and Cardiology. PROCEDURES: None. HOSPITAL COURSE: The patient is a pleasant elderly male who developed SVT and had a syncopal episode. He received 2 doses of adenosine and I gave him some IV metoprolol, and we consulted Cardiology and Neurology. Cardiology agreed with the beta blockade. Neurology felt that there were no acute neurologic issues and yesterday, I saw and examined him before discharge. He was doing well. We discharged to home. DISPOSITION: Home. ACTIVITY: As tolerated. DIET: Low sodium. MEDICATIONS: Please see the MRAD. TOTAL TIME: 32 minutes. KEVEN DHILLON DO DR: JARON/mike JOB#: [id number] / [id number]
== END 2021-02-10 14:15 | disposition home health service (06) ==
LOC: ER 13:48 → INTOOBSV 17:40 → ED HOLD 17:40 → 2 SOUTH 18:54
PROVIDERS: ADMIT Internal Medicine; ATTEND Internal Medicine
DX: I47.1 Supraventricular tachycardia (principal); R55 Syncope and collapse; S06.0X9A Concussion with loss of consciousness of unspecified duration, initial encounter; E87.1 Hypo-osmolality and hyponatremia; D72.829 Elevated white blood cell count, unspecified; E78.00 Pure hypercholesterolemia, unspecified; E11.65 Type 2 diabetes mellitus with hyperglycemia; I12.9 Hypertensive chronic kidney disease with stage 1 through stage 4 chronic kidney disease, or unspecified chronic kidney disease; N18.9 Chronic kidney disease, unspecified; K21.9 Gastro-esophageal reflux disease without esophagitis; G93.41 Metabolic encephalopathy; E78.5 Hyperlipidemia, unspecified; F03.90 Unspecified dementia, unspecified severity, without behavioral disturbance, psychotic disturbance, mood disturbance, and anxiety; Z90.49 Acquired absence of other specified parts of digestive tract; Z87.891 Personal history of nicotine dependence; W18.39XA Other fall on same level, initial encounter; Y93.89 Activity, other specified; Y92.89 Other specified places as the place of occurrence of the external cause; Y99.8 Other external cause status
CPT/HCPCS: 36415; 70450; 71045; 72125; 80048; 80053; 80061; 81001; 83735; 84443; 84484; 85025; 93005; 93306; 96361; 96374; 97161; 99291; G0378; J0153; J7030; G0379; 99285-25

== ENCOUNTER 2021-11-26 15:40 | Inpatient (IN) | payer MEDICARE ==
[~2021-11-26] VITALS: Ht 177.8 cm; Wt 63.0 kg
[~2021-11-26 15:40] MED LIST changes: +ASPI-886 PO; +CYAN100072 PO; +METO25TA4 PO
--- NOTE | 2021-11-26 15:44 | PHYS DOC ---
Past Medical History Past Medical History: High Cholesterol, Seizure Past Surgical History: No Surgical History Smoking Status: Former Smoker Alcohol Use: None Adult General Chief Complaint Chief Complaint: WEAKNESS/GENERALIZED HPI HPI Patient is a 86 year old male who presents with generalized weakness. Patient reports he has been having worsening symptoms over the last week. At baseline, he ambulates around his house without assistive device. Over the last several days, however, he has required assistance getting around his house and states he has simply not been moving as much because of feeling weak. He feels too weak to ambulate. He has not had any viral symptoms. No fever this week but he does state he had mild cough and flu symptoms last week. He denies chest pain or shortness of breath. No worsening orthopnea. Has been compliant with all medications. At baseline, lives at home with his . Reports he has had some diminished p.o. intake but no nausea or vomiting. Denies abdominal pain. Review of Systems Review of Systems Constitutional: Denies fever or chills Eyes: Denies change in visual acuity, redness, or eye pain HENT: Denies nasal congestion or sore throat Respiratory: Denies cough or shortness of breath Cardiovascular: No additional information not addressed in HPI GI: Denies abdominal pain, nausea, vomiting, bloody stools or diarrhea : Denies dysuria or hematuria Musculoskeletal: Denies back pain or joint pain Integument: Denies rash or skin lesions Neurologic: Denies headache, focal weakness or sensory changes Endocrine: Denies polyuria or polydipsia All other systems were reviewed and found to be within normal limits, except as documented in this note. Current Medications Current Medications Current Medications Medications (Trade) Dose Ordered Sig/Devang Start Time Stop Time Status Last Admin Dose Admin Diltiazem HCl (Cardizem Iv Push) 10 mg 1X ONCE 11/26/21 16:15 11/26/21 16:20 DC 11/26/21 16:35 10 MG Sodium Chloride 1,000 ml @ 1,000 mls/hr 1X ONCE 11/26/21 16:45 11/26/21 17:44 Allergies Allergies Allergies Coded Allergies Type Severity Reaction Last Updated Verified No Known Drug Allergies 06/17/14 No Physical Exam Physical Exam Constitutional: Well developed, frail elderly male in no acute distress HENT: Normocephalic, atraumatic, bilateral external ears normal, oropharynx moist, no oral exudates, nose normal Eyes: PERRLA, EOMI, conjunctiva normal, no discharge Neck: Normal range of motion, no tenderness, no JVD Cardiovascular: Irregular, tachycardic rhythm Lungs & Thorax: Bilateral breath sounds clear to auscultation Abdomen: Bowel sounds normal, soft, no tenderness Skin: Warm, dry, no erythema, no rash Back: No tenderness, no CVA tenderness. Extremities: No tenderness, no cyanosis, no clubbing, ROM intact, no edema. Neurologic: Alert and oriented X 3, normal motor function Psychologic: Affect normal, judgement normal, mood normal Current Patient Data Vital Signs Vital Signs Date Time Temp Pulse Resp B/P (MAP) Pulse Ox O2 Delivery O2 Flow Rate FiO2 11/26/21 16:35 156 70/55 11/26/21 15:51 98.1 16 96 3.0 98.1 Lab Values Laboratory Tests Test 11/26/21 16:13 White Blood Count 24.1 x10^3/uL (4.0-11.0) H Red Blood Count 4.27 x10^6/uL (4.30-5.70) L Hemoglobin 14.0 g/dL (13.0-17.5) Hematocrit 42.0 % (39.0-53.0) Mean Corpuscular Volume 98 fL (79-100) Mean Corpuscular Hemoglobin 33 pg (25-35) Mean Corpuscular Hemoglobin Concent 33 g/dL (31-37) Red Cell Distribution Width 13.9 % (11.5-14.5) Platelet Count 189 x10^3/uL (140-400) Neutrophils (%) (Auto) 88 % (31-73) H Lymphocytes (%) (Auto) 4 % (24-48) L Monocytes (%) (Auto) 8 % (0-9) Eosinophils (%) (Auto) 0 % (0-3) Basophils (%) (Auto) 0 % (0-3) Neutrophils # (Auto) 21.3 x10^3/uL (1.8-7.7) H Lymphocytes # (Auto) 0.9 x10^3/uL (1.0-4.8) L Monocytes # (Auto) 1.9 x10^3/uL (0.0-1.1) H Eosinophils # (Auto) 0.0 x10^3/uL (0.0-0.7) Basophils # (Auto) 0.0 x10^3/uL (0.0-0.2) Segmented Neutrophils % 84 % (35-66) H Band Neutrophils % 3 % (0-9) Lymphocytes % 4 % (24-48) L Monocytes % 9 % (0-10) Platelet Estimate Adequate (ADEQUATE) Sodium Level 136 mmol/L (136-145) Potassium Level 3.9 mmol/L (3.5-5.1) Chloride Level 101 mmol/L (98-107) Carbon Dioxide Level 23 mmol/L (21-32) Anion Gap 12 (6-14) Blood Urea Nitrogen 49 mg/dL (8-26) H Creatinine 2.3 mg/dL (0.7-1.3) H Estimated GFR (Cockcroft-Gault) 27.0 Glucose Level 100 mg/dL (70-99) H Calcium Level 9.1 mg/dL (8.5-10.1) Troponin I High Sensitivity 119 ng/L (4-75) H KX-Cdd-Z-Type Natriuretic Peptide 2921 pg/mL (0-449) H Thyroid Stimulating Hormone (TSH) 1.157 uIU/mL (0.358-3.74) Laboratory Tests 11/26/21 16:13 Laboratory Tests 11/26/21 16:13 EKG EKG 16:05: EKG is interpreted by ER physician. Is a rate of 111 and appears irregular. Atrial fibrillation although there are some intermittent P waves seen in some leads. On telemetry, patient has rates in excess of 160 and does appear to be A. fib with RVR. No ST changes to suggest ischemia or myocardial infarction 16:45: Repeat EKG with rate of 77. There are QRS complexes with associated P waves. Do not appreciate any expanding MN interval. Again, no ST changes to suggest ischemia. Radiology/Procedures Radiology/Procedures [] Course & Med Decision Making Course & Med Decision Making Pertinent Labs and Imaging studies reviewed. (See chart for details) Mr. Irwin is evaluated on arrival to his room. He arrives via EMS. Has complaints only of generalized weakness. No shortness of breath or dyspnea. He is noted however to have rapid heart rate of 160 and irregular rhythm. Denies that he has had this in the past. Standard work-up and EKGs ordered. Initial EKG is revealing for atrial fibrillation with RVR. Patient is hypotensive with systolic blood pressure in the 70s. Aggressive IV fluid hydration is ordered and 2 IVs are placed per nursing staff. We will give small dose of Cardizem 16:40: Patient improved. Systolic blood pressure 88. IV fluids running. Heart rate appears to be sinus rhythm in the 80s. Repeat EKG ordered. 17:00: Heart rate 87. Systolic blood pressure 127. Patient denies complaints at this time and appears much improved. Noted to have mildly elevated high- sensitivity troponin. Anticipate admission. Family member at bedside. She re ports he has had similar episode previously when he was admitted at this facility. Dragon Disclaimer Dragon Disclaimer This electronic medical record was generated, in whole or in part, using a voice recognition dictation system. Departure Departure Referrals: EDUAR SANTA MD (PCP) MARVA VASQUEZ DO Nov 26, 2021 15:44
[2021-11-26] MEDS ORDERED: IV NORMAL SALINE 1000ML BAG 1,000 ML IV ONE ×3 (16:15→16:45)
[2021-11-26 16:20] LABS: BASO % 0 % (0-3); EOS % 0 % (0-3); LYMPH # 0.9 x10^3/uL (1.0-4.8); LYMPH % 4 % (24-48); MEAN CORPUSCULAR HEMOGLOBIN 33 pg (25-35); MEAN CORPUSCULAR HGB CONC 33 g/dL (31-37); MEAN CORPUSCULAR VOLUME 98 fL (79-100); MONO # 1.9 x10^3/uL (0.0-1.1); MONO % 8 % (0-9); NEUT # 21.3 x10^3/uL (1.8-7.7); NEUT % 88 % (31-73); PLATELET COUNT 189 x10^3/uL (140-400); RED BLOOD COUNT 4.27 x10^6/uL (4.30-5.70); RED CELL DISTRIBUTION WIDTH 13.9 % (11.5-14.5); WHITE BLOOD COUNT 24.1 x10^3/uL (4.0-11.0)
[2021-11-26 16:32] LABS: CALCIUM 9.1 mg/dL (8.5-10.1); CREATININE 2.3 mg/dL (0.7-1.3); POTASSIUM 3.9 mmol/L (3.5-5.1)
--- NOTE | 2021-11-26 16:35 | RAD ---
Exam performed: One view chest. Indication: Reason: weakness / Spl. Instructions: / History: Date of Service: 11/26/2021 4:09 PM Comparison: None available. Single AP upright portable view chest findings: Cardiomediastinal silhouette is within limits of normal. No acute infiltrates, effusion or pneumotho rax is detected. The bony structures are normal. Impression: No acute cardiopulmonary process is detected. Electronically signed by: Little Mejia MD (11/26/2021 4:33 PM) [facility]Jose R
[2021-11-26 16:56] LABS: % BANDS 3 % (0-9); % LYMPHS 4 % (24-48); % MONOS 9 % (0-10); % SEGS 84 % (35-66); PLT ESTIMATE ADEQUATE (ADEQUATE)
[2021-11-26 18:00] LABS: BILIRUBIN,URINE MODERATE (NEG); CLARITY,URINE CLEAR; COLOR,URINE AMBER; NITRITE,URINE NEGATIVE (NEG); PH,URINE 5.5 (<5.0-8.0); PROTEIN,URINE 100 mg/dL (NEG-TRACE)
[2021-11-26] MEDS ORDERED: cefTRIAXone IV Push 1 GM VIAL. IVP ONE (18:00)
[2021-11-26 18:04] LABS: RBC,URINE OCC /HPF (0-2)
[2021-11-26 18:05] LABS: BACTERIA,URINE 0 /HPF (0-FEW); HYALINE CASTS, URINE MODERATE /HPF
--- NOTE | 2021-11-26 18:09 | PDOC1 ---
History and Physical Date of Admission Date of Admission DATE: 11/26/21 TIME: 18:09 Identification/Chief Complaint Chief Complaint Weakness Source Source: Patient History of Present Illness History of Present Illness Mr Irwin is an 86yo male with PMhx GERD, HLD, mild cognitive impairment, HTN who comes to ED via EMS accompanied by his [id number], Ami, for worsening confusion and weakness that significantly worsened over the last day prior to presentation, was difficult to arouse. His only complaint is weakness for the past week and some intermittent confusion. His granddaughter notes he was previously seen and given metoprolol she is concerned he has been taking it. Was admitted for syncope and SVT 9 months prior to this visit and had been given metoprolol. Initial telemetry in the 170s with systolic blood pressure in the 70s scattered P waves given 10 mg IV Cardizem and heart rate came into the 90s and systolic blood pressure into the 120s. His mental status improved after his HR improved. At that time his only complaints were some low back pain and weakness. no focal neurologic deficits. He did have a fall onto his backside about 6 weeks prior to presentation and normally gets around with a walker at home, but has been more forgetful about this lately. He is fully vaccinated against COVID 19, cannot recall if he had a booster vaccine, his daughter in law thinks so. WBC 24.1, Hb 14, platelets 189, NA 136, K3.9, BUN 49, CR 2.3, glucose 100, high- sensitivity troponin is 119, NT proBNP 2921, TSH 1.157, urinalysis bland with large blood large bilirubin Chest radiograph with no acute abnormalities. Admitted for further care. Past Medical History Cardiovascular: HTN, Hyperlipidemia CENTRAL NERVOUS SYSTEM: Dementia GI: GERD Past Surgical History Past Surgical History: Tonsillectomy, Other Family History Family History: Family History Unknown Social History Smoke: Quit ALCOHOL: none Drugs: None Current Medications Current Medications Current Medications Sodium Chloride 1,000 ml @ 1,000 mls/hr 1X ONCE IV Last administered on 11/26/21at 16:15; Start 11/26/21 at 16:15; Stop 11/26/21 at 17:14; Status DC Diltiazem HCl (Cardizem Iv Push) 10 mg 1X ONCE IVP Last administered on 11/26/21at 16:35; Start 11/26/21 at 16:15; Stop 11/26/21 at 16:20; Status DC Sodium Chloride 1,000 ml @ 1,000 mls/hr 1X ONCE IV Last administered on 11/26/21at 16:35; Start 11/26/21 at 16:45; Stop 11/26/21 at 17:44; Status DC Sodium Chloride 1,000 ml @ 1,000 mls/hr 1X ONCE IV Last administered on at 17:39; Start 11/26/21 at 16:45; Stop 11/26/21 at 17:44; Status DC Ceftriaxone Sodium (Rocephin) 1 gm 1X ONCE IVP Last administered on 11/26/21at 17:39; Start 11/26/21 at 18:00; Stop 11/26/21 at 18:01; Status DC Active Scripts Active Aspirin Ec (Aspirin) 81 Mg Tablet.dr 81 Mg PO DAILYWBKFT 30 Days Metoprolol Tartrate 25 Mg Tablet 25 Mg PO BID 30 Days Reported B-12 (Cyanocobalamin (Vitamin B-12)) 1,000 Mcg Tablet 1 Tab PO DAILY 30 Days Fiber (Dextrin) 350 Gm Powder 350 Gm PO DAILY Vitamin D3 (Cholecalciferol (Vitamin D3)) 1,000 Unit Tablet 1 Tab PO DAILY Allergies Allergies: Coded Allergies: No Known Drug Allergies (Unverified , 06/17/14) ROS General: YES: Fatigue, Malaise; No: Chills, Night Sweats, Appetite, Other PSYCHOLOGICAL ROS: YES: Disorientation, Memory difficulties; No: Anxiety, Behavioral Disorder, Concentration difficultie, Decreased libido, Depression, Hallucinations, Hostility, Irritablity, Mood Swings, Obsessive thoughts, Physical abuse, Sexual abuse, Sleep disturbances, Suicidal ideation, Other Eyes: No Blurry vision, No Decreased vision, No Double vision, No Dry eyes, No Excessive tearing, No Eye Pain, No Itchy Eyes, No Loss of vision, No Photophobia, No Scotomata, No Uses contacts, No Uses glasses, No Other HEENT: No: Heacaches, Visual Changes, Hearing change, Nasal congestion, Nasal discharge, Oral lesions, Sinus pain, Sore Throat, Epistaxis, Sneezing, Snoring, Tinnitus, Vertigo, Vocal changes, Other ALLERGY AND IMMUNOLOGY: No: Hives, Insect Bite Sensitivity, Itchy/Watery Eyes, Nasal Congestion, Post Nasal Drip, Seasonal Allergies, Other Hematological and Lymphatic: No: Bleeding Problems, Blood Clots, Blood Transfusions, Brusing, Night Sweats, Pallor, Swollen Lymph Nodes, Other ENDOCRINE: No: Breast Changes, Galactorrhea, Hair Pattern Changes, Hot Flashes, Malaise/lethargy, Mood Swings, Palpitations, Polydipsia/polyuria, Skin Changes, Temperature Intolerance, Unexpected Weight Changes, Other Breast: No New/Changing Breast Lumps, No Nipple changes, No Nipple discharge, No Other Respiratory: No: Cough, Hemoptysis, Orthopnea, Pleuritic Pain, Shortness of breath, SOB with excertion, Sputum Changes, Stridor, Tachypnea, Wheezing, Other Cardiovascular: No Chest Pain, No Palpitations, No Orthopnea, No Paroxysmal Noc. Dyspnea, No Edema, No Lt Headedness, No Other Gastrointestinal: No Nausea, No Vomiting, No Abdominal Pain, No Diarrhea, No Constipation, No Melena, No Hematochezia, No Other Genitourinary: No Dysuria, No Frequency, No Incontinence, No Hematuria, No Retention, No Discharge, No Urgency, No Pain, No Flank Pain, No Other, No , No , No , No , No , No , No Musculoskeletal: Yes Gait Disturbance, Yes Muscular Weakness; No Joint Pain, No Joint Stiffness, No Joint Swelling, No Muscle Pain, No Pain In:, No Swelling In:, No Other Neurological: No Behavorial Changes, No Bowel/Bladder ControlChng, No Confusion, No Dizziness, No Gait Disturbance, No Headaches, No Impaired Coord/balance, No Memory Loss, No Numbness/Tingling, No Seizures, No Speech Problems, No Tremors, No Visual Changes, No Weakness, No Other Skin: No Dry Skin, No Eczema, No Hair Changes, No Lumps, No Mole Changes, No Mottling, No Nail Changes, No Pruritus, No Rash, No Skin Lesion Changes, No Other, No Acne Physical Exam General: Alert, Cooperative, mild distress HEENT: Atraumatic, PERRLA, EOMI, Mucous membr. moist/pink Lungs: Clear to auscultation, Normal air movement Heart: irregularly irregular Abdomen: Normal bowel sounds, Soft, No tenderness, No hepatosplenomegaly, No masses Rectal Exam: not examined Extremities: No clubbing, No cyanosis, No edema, Normal pulses, No tenderness/swelling Skin: No rashes, No breakdown, No significant lesion Neuro: Normal speech, Strength at 5/5 X4 ext, Normal tone, Sensation intact, Cranial nerves 3-12 NL, Reflexes 2+ Psych/Mental Status: Mental status NL, Mood NL Vitals Vitals Vital Signs Date Time Temp Pulse Resp B/P (MAP) Pulse Ox O2 Delivery O2 Flow Rate FiO2 11/26/21 16:35 156 70/55 11/26/21 15:51 98.1 16 96 3.0 98.1 Labs Labs Laboratory Tests Test 11/26/21 16:13 11/26/21 17:42 White Blood Count 24.1 x10^3/uL (4.0-11.0) Red Blood Count 4.27 x10^6/uL (4.30-5.70) Hemoglobin 14.0 g/dL (13.0-17.5) Hematocrit 42.0 % (39.0-53.0) Mean Corpuscular Volume 98 fL (79-100) Mean Corpuscular Hemoglobin 33 pg (25-35) Mean Corpuscular Hemoglobin Concent 33 g/dL (31-37) Red Cell Distribution Width 13.9 % (11.5-14.5) Platelet Count 189 x10^3/uL (140-400) Neutrophils (%) (Auto) 88 % (31-73) Lymphocytes (%) (Auto) 4 % (24-48) Monocytes (%) (Auto) 8 % (0-9) Eosinophils (%) (Auto) 0 % (0-3) Basophils (%) (Auto) 0 % (0-3) Neutrophils # (Auto) 21.3 x10^3/uL (1.8-7.7) Lymphocytes # (Auto) 0.9 x10^3/uL (1.0-4.8) Monocytes # (Auto) 1.9 x10^3/uL (0.0-1.1) Eosinophils # (Auto) 0.0 x10^3/uL (0.0-0.7) Basophils # (Auto) 0.0 x10^3/uL (0.0-0.2) Segmented Neutrophils % 84 % (35-66) Band Neutrophils % 3 % (0-9) Lymphocytes % 4 % (24-48) Monocytes % 9 % (0-10) Platelet Estimate Adequate (ADEQUATE) Sodium Level 136 mmol/L (136-145) Potassium Level 3.9 mmol/L (3.5-5.1) Chloride Level 101 mmol/L (98-107) Carbon Dioxide Level 23 mmol/L (21-32) Anion Gap 12 (6-14) Blood Urea Nitrogen 49 mg/dL (8-26) Creatinine 2.3 mg/dL (0.7-1.3) Estimated GFR (Cockcroft-Gault) 27.0 Glucose Level 100 mg/dL (70-99) Calcium Level 9.1 mg/dL (8.5-10.1) Troponin I High Sensitivity 119 ng/L (4-75) RJ-Qgv-Q-Type Natriuretic Peptide 2921 pg/mL (0-449) Thyroid Stimulating Hormone (TSH) 1.157 uIU/mL (0.358-3.74) Urine Collection Type Unknown Urine Color Divya Urine Clarity Clear Urine pH 5.5 (<5.0-8.0) Urine Specific [place] 1.020 (1.000-1.030) Urine Protein 100 mg/dL (NEG-TRACE) Urine Glucose (UA) Negative mg/dL (NEG) Urine Ketones (Stick) 15 mg/dL (NEG) Urine Blood Large (NEG) Urine Nitrite Negative (NEG) Urine Bilirubin Moderate (NEG) Urine Urobilinogen Dipstick 1.0 mg/dL (0.2 mg/dL) Urine Leukocyte Esterase Negative (NEG) Urine RBC Occ /HPF (0-2) Urine WBC 1-4 /HPF (0-4) Urine Bacteria 0 /HPF (0-FEW) Urine Hyaline Casts Moderate /HPF Urine Mucus Mod /LPF Laboratory Tests Test 11/26/21 16:13 11/26/21 17:42 White Blood Count 24.1 x10^3/uL (4.0-11.0) Red Blood Count 4.27 x10^6/uL (4.30-5.70) Hemoglobin 14.0 g/dL (13.0-17.5) Hematocrit 42.0 % (39.0-53.0) Mean Corpuscular Volume 98 fL (79-100) Mean Corpuscular Hemoglobin 33 pg (25-35) Mean Corpuscular Hemoglobin Concent 33 g/dL (31-37) Red Cell Distribution Width 13.9 % (11.5-14.5) Platelet Count 189 x10^3/uL (140-400) Neutrophils (%) (Auto) 88 % (31-73) Lymphocytes (%) (Auto) 4 % (24-48) Monocytes (%) (Auto) 8 % (0-9) Eosinophils (%) (Auto) 0 % (0-3) Basophils (%) (Auto) 0 % (0-3) Neutrophils # (Auto) 21.3 x10^3/uL (1.8-7.7) Lymphocytes # (Auto) 0.9 x10^3/uL (1.0-4.8) Monocytes # (Auto) 1.9 x10^3/uL (0.0-1.1) Eosinophils # (Auto) 0.0 x10^3/uL (0.0-0.7) Basophils # (Auto) 0.0 x10^3/uL (0.0-0.2) Segmented Neutrophils % 84 % (35-66) Band Neutrophils % 3 % (0-9) Lymphocytes % 4 % (24-48) Monocytes % 9 % (0-10) Platelet Estimate Adequate (ADEQUATE) Sodium Level 136 mmol/L (136-145) Potassium Level 3.9 mmol/L (3.5-5.1) Chloride Level 101 mmol/L (98-107) Carbon Dioxide Level 23 mmol/L (21-32) Anion Gap 12 (6-14) Blood Urea Nitrogen 49 mg/dL (8-26) Creatinine 2.3 mg/dL (0.7-1.3) Estimated GFR (Cockcroft-Gault) 27.0 Glucose Level 100 mg/dL (70-99) Calcium Level 9.1 mg/dL (8.5-10.1) Troponin I High Sensitivity 119 ng/L (4-75) FD-Fqz-Y-Type Natriuretic Peptide 2921 pg/mL (0-449) Thyroid Stimulating Hormone (TSH) 1.157 uIU/mL (0.358-3.74) Urine Collection Type Unknown Urine Color Divya Urine Clarity Clear Urine pH 5.5 (<5.0-8.0) Urine Specific [place] 1.020 (1.000-1.030) Urine Protein 100 mg/dL (NEG-TRACE) Urine Glucose (UA) Negative mg/dL (NEG) Urine Ketones (Stick) 15 mg/dL (NEG) Urine Blood Large (NEG) Urine Nitrite Negative (NEG) Urine Bilirubin Moderate (NEG) Urine Urobilinogen Dipstick 1.0 mg/dL (0.2 mg/dL) Urine Leukocyte Esterase Negative (NEG) Urine RBC Occ /HPF (0-2) Urine WBC 1-4 /HPF (0-4) Urine Bacteria 0 /HPF (0-FEW) Urine Hyaline Casts Moderate /HPF Urine Mucus Mod /LPF Images Images Chest radiograph: Cardiomediastinal silhouette is within limits of normal. No acute infiltrates, effusion or pneumothorax is detected. The bony structures are normal. Impression: No acute cardiopulmonary process is detected. VTE Prophylaxis Ordered VTE Prophylaxis Devices: Yes VTE Pharmacological Prophylaxi: Yes Assessment/Plan Assessment/Plan Afib with RVR - Initial telemetry in the 170s with systolic blood pressure in the 70s scattered P waves given 10 mg IV Cardizem and heart rate came into the 90s and systolic blood pressure into the 120s. Will restart home metoprolol given quick improvement. lovenox as well. Cardiology consult Weakness - possibly due to afib, dehydration, progressive dementia NINA- likely vasomotor nephropathy from dehydration, poor self care, afib Leukocytosis - no clear etiology, though SVT/Afib acutely could be etiology, will f/u culture results, hold off on further antibiotics given his BP improvement with cardizem GERD - ppi HLD - statin Mild cognitive impairment/early dementia - may consider memantine. Given weakness and recent fall and afib donepezil would be higher risk HTN - cont metoprolol FEN - Cardiac diet PPX -lovenox Code - DNR/DNI Dispo -inpatient Surrogate decision maker and DPOA is [id number], Ami Justifications for Admission Other Justification SANDI CARNEY MD Nov 26, 2021 18:09
[2021-11-26] MEDS ORDERED: ONDANSETRON PF 4 MG/2 ML VIAL. IVP PRN ×2 (18:15→23:00)
[2021-11-26] MEDS: PATCH REMOVAL. MC SCH (21:00)
[2021-11-26 22:00] VITALS: BP 123/65
[2021-11-26] MEDS ORDERED: ACETAMINOPHEN 325 MG TABLET. PO PRN (23:00)
[2021-11-26] MEDS ORDERED: METOPROLOL IV PUSH 5 MG/5 ML VIAL. IVP PRN (23:00)
[2021-11-26] MEDS ORDERED: guaiFENesin DM 200MG/20MG 10 ML SYRUP PO PRN (23:00)
--- NOTE | 2021-11-27 02:07 | EKG ---
[facility] [address] [place] [address] Test Date: 2021-11-26 Test Time: 16:43:46 Pat Name: TRAMAINE KAUR Department: Room: 648 1 Gender: M [employer]: : [id number] Requested By: MARVA VASQUEZ Order Number: [id number] Reading MD: Jaswinder Alex MD Measurements Intervals [place] Rate: 77 P: 90 MI: 224 QRS: -30 QRSD: 90 T: 62 QT: 386 QTc: 439 Interpretive Statements PROBABLE ATRIAL FIBRILLATION WITH INTERMITTENT SR. Electronically Signed On 11-27-2021 14:21:07 [employer] by Jaswinder Alex MD
[2021-11-27 03:05] VITALS: BP 129/62
[2021-11-27 05:03] LABS: BASO % 0 % (0-3); EOS % 0 % (0-3); HEMATOCRIT 39.8 % (39.0-53.0); HEMOGLOBIN 12.9 g/dL (13.0-17.5); LYMPH # 1.7 x10^3/uL (1.0-4.8); LYMPH % 9 % (24-48); MEAN CORPUSCULAR HEMOGLOBIN 33 pg (25-35); MEAN CORPUSCULAR HGB CONC 32 g/dL (31-37); MEAN CORPUSCULAR VOLUME 103 fL (79-100); MONO # 1.5 x10^3/uL (0.0-1.1); MONO % 8 % (0-9); NEUT # 14.8 x10^3/uL (1.8-7.7); NEUT % 82 % (31-73); PLATELET COUNT 145 x10^3/uL (140-400); RED BLOOD COUNT 3.86 x10^6/uL (4.30-5.70); RED CELL DISTRIBUTION WIDTH 14.4 % (11.5-14.5); WHITE BLOOD COUNT 17.9 x10^3/uL (4.0-11.0)
[2021-11-27 05:37] LABS: CALCIUM 8.4 mg/dL (8.5-10.1); CREATININE 1.6 mg/dL (0.7-1.3); GFR 41.1; MAGNESIUM 2.4 mg/dL (1.8-2.4); POTASSIUM 3.8 mmol/L (3.5-5.1)
[2021-11-27 07:00] VITALS: BP 113/56
[2021-11-27] MEDS: CYANOCOBALAMIN (VITAMIN B-12) 1,000 MCG TABLET. PO SCH (08:51)
[2021-11-27] MEDS: ASPIRIN ENTERIC COATED 81 MG TABLET.DR. PO SCH (08:51)
[2021-11-27] MEDS: CHOLECALCIFEROL (VITAMIN D3) 1,000 UNIT TABLET PO SCH (08:51)
[2021-11-27] MEDS: LIDOCAINE (700MG/PATCH) PATCH. TD SCH ×2 (08:56→09:00)
[2021-11-27] MEDS: METOPROLOL TART IMMED RELEASE 25 MG TABLET. PO SCH ×2 (09:00→21:00)
[2021-11-27 11:00] VITALS: BP 127/72
--- NOTE | 2021-11-27 12:10 | PDOC ---
[facility] PROGRESS NOTE Date of Service DOS: DATE: 11/27/21 TIME: 12:01 Chief Complaint Chief Complaint Afib with RVR - Initial telemetry in the 170s with systolic blood pressure in the 70s scattered P waves given 10 mg IV Cardizem and heart rate came into the 90s and systolic blood pressure into the 120s. Will restart home metoprolol given quick improvement. lovenox as well. Cardiology consult Weakness - possibly due to afib, dehydration, progressive dementia NINA - likely vasomotor nephropathy from dehydration, poor self care, afib Leukocytosis - no clear etiology, though SVT/Afib acutely could be etiology, will f/u culture results, hold off on further antibiotics given his BP improvement with cardizem GERD - ppi HLD - statin Mild cognitive impairment/early dementia - may consider memantine. Given weakn ess and recent fall and afib donepezil would be higher risk HTN - cont metoprolol FEN - Cardiac diet PPX - lovenox Code - DNR/DNI Dispo - inpatient Surrogate decision maker and DPOA is [id number], Ami History of Present Illness History of Present Illness Mr Irwin is an 86yo male with PMhx GERD, HLD, mild cognitive impairment, HTN who comes to ED via EMS accompanied by his gjtolmju-ad-pws, Ami, for worsening confusion and weakness that significantly worsened over the last day prior to presentation, was difficult to arouse. His only complaint is weakness for the past week and some intermittent confusion. His granddaughter notes he was previously seen and given metoprolol she is concerned he has been taking it. Was admitted for syncope and SVT 9 months prior to this visit and had been given metoprolol. Initial telemetry in the 170s with systolic blood pressure in the 70s scattered P waves given 10 mg IV Cardizem and heart rate came into the 90s and systolic blood pressure into the 120s. His mental status improved after his HR improved. At that time his only complaints were some low back pain and weakness. no focal neurologic deficits. He did have a fall onto his backside about 6 weeks prior to presentation and normally gets around with a walker at home, but has been more forgetful about this lately. He is fully vaccinated against COVID 19, cannot recall if he had a booster vaccine, his daughter in law thinks so. WBC 24.1, Hb 14, platelets 189, NA 136, K3.9, BUN 49, CR 2.3, glucose 100, high- sensitivity troponin is 119, NT proBNP 2921, TSH 1.157, urinalysis bland with large blood large bilirubin Chest radiograph with no acute abnormalities. Admitted for further care. 11/27: Still in A. fib heart rate in the 90s on p.o. metoprolol. He still feeling very weak. No fevers. CR improved to 1.6, WBC coming down. Discussed with [id number] Ami Vitals/I&O Vitals/I&O: Vital Signs Date Time Temp Pulse Resp B/P (MAP) Pulse Ox O2 Delivery O2 Flow Rate FiO2 11/27/21 11:00 97.5 83 18 127/72 (90) 99 Room Air 97.5 11/26/21 22:00 2.0 I & O 11/26/21 11/26/21 11/27/21 15:00 23:00 07:00 Intake Total 3000 ml 0 ml Balance 3000 ml 0 ml Physical Exam General: Alert, Cooperative, mild distress Lungs: Clear Abdomen: Normal bowel sounds, Soft, No tenderness, No hepatosplenomegaly, No masses Extremities: No clubbing, No cyanosis, No edema, Normal pulses, No tenderness/swelling Skin: No rashes, No breakdown, No significant lesion Labs Labs: Laboratory Tests Test 11/26/21 16:13 11/26/21 17:42 11/27/21 04:30 White Blood Count 24.1 x10^3/uL (4.0-11.0) 17.9 x10^3/uL (4.0-11.0) Red Blood Count 4.27 x10^6/uL (4.30-5.70) 3.86 x10^6/uL (4.30-5.70) Hemoglobin 14.0 g/dL (13.0-17.5) 12.9 g/dL (13.0-17.5) Hematocrit 42.0 % (39.0-53.0) 39.8 % (39.0-53.0) Mean Corpuscular Volume 98 fL (79-100) 103 fL (79-100) Mean Corpuscular Hemoglobin 33 pg (25-35) 33 pg (25-35) Mean Corpuscular Hemoglobin Concent 33 g/dL (31-37) 32 g/dL (31-37) Red Cell Distribution Width 13.9 % (11.5-14.5) 14.4 % (11.5-14.5) Platelet Count 189 x10^3/uL (140-400) 145 x10^3/uL (140-400) Neutrophils (%) (Auto) 88 % (31-73) 82 % (31-73) Lymphocytes (%) (Auto) 4 % (24-48) 9 % (24-48) Monocytes (%) (Auto) 8 % (0-9) 8 % (0-9) Eosinophils (%) (Auto) 0 % (0-3) 0 % (0-3) Basophils (%) (Auto) 0 % (0-3) 0 % (0-3) Neutrophils # (Auto) 21.3 x10^3/uL (1.8-7.7) 14.8 x10^3/uL (1.8-7.7) Lymphocytes # (Auto) 0.9 x10^3/uL (1.0-4.8) 1.7 x10^3/uL (1.0-4.8) Monocytes # (Auto) 1.9 x10^3/uL (0.0-1.1) 1.5 x10^3/uL (0.0-1.1) Eosinophils # (Auto) 0.0 x10^3/uL (0.0-0.7) 0.0 x10^3/uL (0.0-0.7) Basophils # (Auto) 0.0 x10^3/uL (0.0-0.2) 0.0 x10^3/uL (0.0-0.2) Segmented Neutrophils % 84 % (35-66) Band Neutrophils % 3 % (0-9) Lymphocytes % 4 % (24-48) Monocytes % 9 % (0-10) Platelet Estimate Adequate (ADEQUATE) Sodium Level 136 mmol/L (136-145) 143 mmol/L (136-145) Potassium Level 3.9 mmol/L (3.5-5.1) 3.8 mmol/L (3.5-5.1) Chloride Level 101 mmol/L (98-107) 108 mmol/L (98-107) Carbon Dioxide Level 23 mmol/L (21-32) 22 mmol/L (21-32) Anion Gap 12 (6-14) 13 (6-14) Blood Urea Nitrogen 49 mg/dL (8-26) 47 mg/dL (8-26) Creatinine 2.3 mg/dL (0.7-1.3) 1.6 mg/dL (0.7-1.3) Estimated GFR (Cockcroft-Gault) 27.0 41.1 Glucose Level 100 mg/dL (70-99) 85 mg/dL (70-99) Calcium Level 9.1 mg/dL (8.5-10.1) 8.4 mg/dL (8.5-10.1) Troponin I High Sensitivity 119 ng/L (4-75) YE-Bpq-B-Type Natriuretic Peptide 2921 pg/mL (0-449) Thyroid Stimulating Hormone (TSH) 1.157 uIU/mL (0.358-3.74) Urine Collection Type Unknown Urine Color Divya Urine Clarity Clear Urine pH 5.5 (<5.0-8.0) Urine Specific [place] 1.020 (1.000-1.030) Urine Protein 100 mg/dL (NEG-TRACE) Urine Glucose (UA) Negative mg/dL (NEG) Urine Ketones (Stick) 15 mg/dL (NEG) Urine Blood Large (NEG) Urine Nitrite Negative (NEG) Urine Bilirubin Moderate (NEG) Urine Urobilinogen Dipstick 1.0 mg/dL (0.2 mg/dL) Urine Leukocyte Esterase Negative (NEG) Urine RBC Occ /HPF (0-2) Urine WBC 1-4 /HPF (0-4) Urine Bacteria 0 /HPF (0-FEW) Urine Hyaline Casts Moderate /HPF Urine Mucus Mod /LPF Magnesium Level 2.4 mg/dL (1.8-2.4) Assessment and Plan Assessmemt and Plan Problems Medical Problems: (1) Leukocytosis Status: Acute (2) Tachycardia Status: Acute Comment Review of Relevant I have reviewed the following items natalie (where applicable) has been applied. Medications: Current Medications Medications (Trade) Dose Ordered Sig/Devang Route PRN Reason Start Time Stop Time Status Last Admin Dose Admin Sodium Chloride 1,000 ml @ 1,000 mls/hr 1X ONCE IV 11/26/21 16:15 11/26/21 17:14 DC 11/26/21 16:15 Diltiazem HCl (Cardizem Iv Push) 10 mg 1X ONCE IVP 11/26/21 16:15 11/26/21 16:20 DC 11/26/21 16:35 Sodium Chloride 1,000 ml @ 1,000 mls/hr 1X ONCE IV 11/26/21 16:45 11/26/21 17:44 DC 11/26/21 16:35 Sodium Chloride 1,000 ml @ 1,000 mls/hr 1X ONCE IV 11/26/21 16:45 11/26/21 17:44 DC 11/26/21 17:39 Ceftriaxone Sodium (Rocephin) 1 gm 1X ONCE IVP 11/26/21 18:00 11/26/21 18:01 DC 11/26/21 17:39 Aspirin (Ecotrin) 81 mg DAILYWBKFT PO 11/27/21 08:00 11/27/21 08:51 Vitamin D (Vitamin D3) 1,000 unit DAILY PO 11/27/21 09:00 11/27/21 08:51 Cyanocobalamin (Vitamin B-12) 1,000 mcg DAILY PO 11/27/21 09:00 11/27/21 08:51 Enoxaparin Sodium (Lovenox 60mg Syringe) 60 mg Q12HR SQ 11/27/21 09:00 11/27/21 08:58 Justifications for Admission Other Justification SANDI CARNEY MD Nov 27, 2021 12:10
[2021-11-27 14:50] VITALS: BP 156/67
--- NOTE | 2021-11-27 16:13 | PDOC2 ---
CARDIOLOGY CONSULT NOTE DATE OF SERVICE: DATE: 11/27/21 TIME: 16:10 CHIEF COMPLAINT: Weakness and dizziness HPI: 86-year-old otherwise very healthy male presents to the hospital in the setting of worsening dizziness when he stands up. He was found to have possible intermittent tachycardia and therefore admitted to the hospital. He currently denies any chest pain or dyspnea or dizziness. He is accompanied today in the room by his flldwqpl-cf-aji and grandson. Apparently the patient has been in his usual state of health for the last week or so at which point he began to not be as active as he used to be because of the dizziness. He reports eating and drinking less than usual over the last few days. He has not had any significant prior cardiovascular events. Of note, he has been admitted to the hospital ap proximately 1 year ago when he was found to have SVT and was on metoprolol therapy he has not had any further follow-up since then. PMHX: No significant past medical history. Patient does not take any significant medications. SOCHX: He lives at home with his . His jstekzbo-sn-bak is his primary DPOA. FAMHX: Noncontributory CURRENT MEDS: Current Medications Medications (Trade) Dose Ordered Sig/Devang Route PRN Reason Start Time Stop Time Status Last Admin Dose Admin Sodium Chloride 1,000 ml @ 1,000 mls/hr 1X ONCE IV 11/26/21 16:15 11/26/21 17:14 DC 11/26/21 16:15 Diltiazem HCl (Cardizem Iv Push) 10 mg 1X ONCE IVP 11/26/21 16:15 11/26/21 16:20 DC 11/26/21 16:35 Sodium Chloride 1,000 ml @ 1,000 mls/hr 1X ONCE IV 11/26/21 16:45 11/26/21 17:44 DC 11/26/21 16:35 Sodium Chloride 1,000 ml @ 1,000 mls/hr 1X ONCE IV 11/26/21 16:45 11/26/21 17:44 DC 11/26/21 17:39 Ceftriaxone Sodium (Rocephin) 1 gm 1X ONCE IVP 11/26/21 18:00 11/26/21 18:01 DC 11/26/21 17:39 Aspirin (Ecotrin) 81 mg DAILYWBKFT PO 11/27/21 08:00 11/27/21 08:51 Vitamin D (Vitamin D3) 1,000 unit DAILY PO 11/27/21 09:00 11/27/21 08:51 Cyanocobalamin (Vitamin B-12) 1,000 mcg DAILY PO 11/27/21 09:00 11/27/21 08:51 Enoxaparin Sodium (Lovenox 60mg Syringe) 60 mg Q12HR SQ 11/27/21 09:00 11/27/21 08:58 ALLERGIES: Allergies Coded Allergies Type Severity Reaction Last Updated Verified No Known Drug Allergies 06/17/14 No ROS: Negative for 10 out of 14 systems reviewed unless otherwise mentioned above in HPI PHYSICAL EXAM: Vital Signs/I&O: Vital Signs Date Time Temp Pulse Resp B/P (MAP) Pulse Ox O2 Delivery O2 Flow Rate FiO2 11/27/21 14:50 97.4 100 18 156/67 (96) 95 Room Air 97.4 11/27/21 08:00 2.0 I & O 11/26/21 11/26/21 11/27/21 15:00 23:00 07:00 Intake Total 3000 ml 0 ml Balance 3000 ml 0 ml Physical Exam: The patient appeared well nourished and normally developed. Head exam is unremarkable. No scleral icterus or corneal arcus noted. Neck is without jugular venous distension, thyromegaly, or carotid bruits. Carotid upstrokes are brisk bilaterally. Lungs are clear to auscultation and percussion. Cardiac exam reveals the PMI to be normally sized and situated. Rhythm is regular. First and second heart sounds normal. No murmurs, rubs or gallops. Abdominal exam reveals normal bowel sounds, no masses, no organomegaly and no aortic enlargement. Extremities are nonedematous and both femoral and pedal pulses are normal. Msk: No traumua Neuro: No focal deficits DIAGNOSTIC TESTING: EKG, telemetry reviewed. Patient appears to have sinus rhythm with intermittent bursts of SVT. Echocardiogram from 2020 was unremarkable without any obvious valvular disease to account for the dizziness. Lab Laboratory Tests Test 11/26/21 16:13 11/26/21 17:42 11/27/21 04:30 White Blood Count 24.1 x10^3/uL (4.0-11.0) H 17.9 x10^3/uL (4.0-11.0) H Red Blood Count 4.27 x10^6/uL (4.30-5.70) L 3.86 x10^6/uL (4.30-5.70) L Hemoglobin 14.0 g/dL (13.0-17.5) 12.9 g/dL (13.0-17.5) L Hematocrit 42.0 % (39.0-53.0) 39.8 % (39.0-53.0) Mean Corpuscular Volume 98 fL (79-100) 103 fL (79-100) #H Mean Corpuscular Hemoglobin 33 pg (25-35) 33 pg (25-35) Mean Corpuscular Hemoglobin Concent 33 g/dL (31-37) 32 g/dL (31-37) Red Cell Distribution Width 13.9 % (11.5-14.5) 14.4 % (11.5-14.5) Platelet Count 189 x10^3/uL (140-400) 145 x10^3/uL (140-400) Neutrophils (%) (Auto) 88 % (31-73) H 82 % (31-73) H Lymphocytes (%) (Auto) 4 % (24-48) L 9 % (24-48) L Monocytes (%) (Auto) 8 % (0-9) 8 % (0-9) Eosinophils (%) (Auto) 0 % (0-3) 0 % (0-3) Basophils (%) (Auto) 0 % (0-3) 0 % (0-3) Neutrophils # (Auto) 21.3 x10^3/uL (1.8-7.7) H 14.8 x10^3/uL (1.8-7.7) H Lymphocytes # (Auto) 0.9 x10^3/uL (1.0-4.8) L 1.7 x10^3/uL (1.0-4.8) Monocytes # (Auto) 1.9 x10^3/uL (0.0-1.1) H 1.5 x10^3/uL (0.0-1.1) H Eosinophils # (Auto) 0.0 x10^3/uL (0.0-0.7) 0.0 x10^3/uL (0.0-0.7) Basophils # (Auto) 0.0 x10^3/uL (0.0-0.2) 0.0 x10^3/uL (0.0-0.2) Segmented Neutrophils % 84 % (35-66) H Band Neutrophils % 3 % (0-9) Lymphocytes % 4 % (24-48) L Monocytes % 9 % (0-10) Platelet Estimate Adequate (ADEQUATE) Sodium Level 136 mmol/L (136-145) 143 mmol/L (136-145) Potassium Level 3.9 mmol/L (3.5-5.1) 3.8 mmol/L (3.5-5.1) Chloride Level 101 mmol/L (98-107) 108 mmol/L (98-107) H Carbon Dioxide Level 23 mmol/L (21-32) 22 mmol/L (21-32) Anion Gap 12 (6-14) 13 (6-14) Blood Urea Nitrogen 49 mg/dL (8-26) H 47 mg/dL (8-26) H Creatinine 2.3 mg/dL (0.7-1.3) H 1.6 mg/dL (0.7-1.3) H Estimated GFR (Cockcroft-Gault) 27.0 41.1 Glucose Level 100 mg/dL (70-99) H 85 mg/dL (70-99) Calcium Level 9.1 mg/dL (8.5-10.1) 8.4 mg/dL (8.5-10.1) L Troponin I High Sensitivity 119 ng/L (4-75) H Thyroid Stimulating Hormone (TSH) 1.157 uIU/mL (0.358-3.74) Urine Collection Type Unknown Urine Color Divya Urine Clarity Clear Urine pH 5.5 (<5.0-8.0) Urine Specific [place] 1.020 (1.000-1.030) Urine Protein 100 mg/dL (NEG-TRACE) Urine Glucose (UA) Negative mg/dL (NEG) Urine Ketones (Stick) 15 mg/dL (NEG) Urine Blood Large (NEG) Urine Nitrite Negative (NEG) Urine Bilirubin Moderate (NEG) Urine Urobilinogen Dipstick 1.0 mg/dL (0.2 mg/dL) Urine Leukocyte Esterase Negative (NEG) Urine RBC Occ /HPF (0-2) Urine WBC 1-4 /HPF (0-4) Urine Bacteria 0 /HPF (0-FEW) Urine Hyaline Casts Moderate /HPF Urine Mucus Mod /LPF Laboratory Tests 11/27/21 04:30 ASSESSMENT: 1. Lightheadedness and dizziness: Less likely to be cardiovascular in origin but cannot rule this out given his age and prior history of SVT. 2. Acute renal failure 3. History of SVT but no clear evidence of atrial fibrillation PLAN: 1. Reinitiate metoprolol 25 mg p.o. twice daily. Continue IV fluid hydration and monitor for improvement in renal function. We will plan for an outpatient echocardiogram and implantable loop recorder for correlation of any symptoms to any arrhythmias. Discussed with [id number] at bedside. Thank you for this consultation we will follow along closely. Discussed with primary service. CARMEN MORELAND MD Nov 27, 2021 16:13
[2021-11-27 19:10] VITALS: BP 148/87
[2021-11-27] MEDS: PATCH REMOVAL. MC SCH (21:00)
[2021-11-27 23:25] VITALS: BP 168/84
[2021-11-28 03:15] VITALS: BP 159/77
[2021-11-28 05:30] LABS: BASO % 0 % (0-3); EOS % 0 % (0-3); HEMATOCRIT 39.5 % (39.0-53.0); HEMOGLOBIN 13.1 g/dL (13.0-17.5); LYMPH # 1.5 x10^3/uL (1.0-4.8); LYMPH % 12 % (24-48); MEAN CORPUSCULAR HEMOGLOBIN 33 pg (25-35); MEAN CORPUSCULAR HGB CONC 33 g/dL (31-37); MEAN CORPUSCULAR VOLUME 101 fL (79-100); MONO # 1.1 x10^3/uL (0.0-1.1); MONO % 9 % (0-9); NEUT # 9.8 x10^3/uL (1.8-7.7); NEUT % 79 % (31-73); PLATELET COUNT 149 x10^3/uL (140-400); RED BLOOD COUNT 3.92 x10^6/uL (4.30-5.70); RED CELL DISTRIBUTION WIDTH 14.3 % (11.5-14.5); WHITE BLOOD COUNT 12.4 x10^3/uL (4.0-11.0)
[2021-11-28 05:44] LABS: CALCIUM 8.4 mg/dL (8.5-10.1); CREATININE 1.3 mg/dL (0.7-1.3); GFR 52.2; POTASSIUM 3.2 mmol/L (3.5-5.1)
[2021-11-28 07:00] VITALS: BP 192/87
[2021-11-28] MEDS: METOPROLOL TART IMMED RELEASE 25 MG TABLET. PO SCH ×2 (08:25→21:13)
[2021-11-28] MEDS: ASPIRIN ENTERIC COATED 81 MG TABLET.DR. PO SCH (08:25)
[2021-11-28] MEDS: CHOLECALCIFEROL (VITAMIN D3) 1,000 UNIT TABLET PO SCH (08:25)
[2021-11-28] MEDS: CYANOCOBALAMIN (VITAMIN B-12) 1,000 MCG TABLET. PO SCH (08:26)
[2021-11-28] MEDS: LIDOCAINE (700MG/PATCH) PATCH. TD SCH (08:27)
[2021-11-28] MEDS ORDERED: POTASSIUM CHLORIDE 20 MEQ TABLET.ER. PO ONE (09:45)
--- NOTE | 2021-11-28 09:47 | PDOC ---
[facility] PROGRESS NOTE Date of Service DOS: DATE: 11/28/21 TIME: 09:45 Chief Complaint Chief Complaint Afib with RVR - Initial telemetry in the 170s with systolic blood pressure in the 70s scattered P waves given 10 mg IV Cardizem and heart rate came into the 90s and systolic blood pressure into the 120s. Will restart home metoprolol given quick improvement. lovenox as well. Cardiology consult Weakness - possibly due to afib, dehydration, progressive dementia NINA - likely vasomotor nephropathy from dehydration, poor self care, afib Leukocytosis - no clear etiology, though SVT/Afib acutely could be etiology, will f/u culture results, hold off on further antibiotics given his BP improvement with cardizem GERD - ppi HLD - statin Mild cognitive impairment/early dementia - may consider memantine. Given weakn ess and recent fall and afib donepezil would be higher risk HTN - cont metoprolol FEN - Cardiac diet PPX - lovenox Code - DNR/DNI Dispo - inpatient Surrogate decision maker and DPOA is [id number], Ami History of Present Illness History of Present Illness Mr Irwin is an 86yo male with PMhx GERD, HLD, mild cognitive impairment, HTN who comes to ED via EMS accompanied by his cvaetgtg-mf-tfg, Ami, for worsening confusion and weakness that significantly worsened over the last day prior to presentation, was difficult to arouse. His only complaint is weakness for the past week and some intermittent confusion. His granddaughter notes he was previously seen and given metoprolol she is concerned he has been taking it. Was admitted for syncope and SVT 9 months prior to this visit and had been given metoprolol. Initial telemetry in the 170s with systolic blood pressure in the 70s scattered P waves given 10 mg IV Cardizem and heart rate came into the 90s and systolic blood pressure into the 120s. His mental status improved after his HR improved. At that time his only complaints were some low back pain and weakness. no focal neurologic deficits. He did have a fall onto his backside about 6 weeks prior to presentation and normally gets around with a walker at home, but has been more forgetful about this lately. He is fully vaccinated against COVID 19, cannot recall if he had a booster vaccine, his daughter in law thinks so. WBC 24.1, Hb 14, platelets 189, NA 136, K3.9, BUN 49, CR 2.3, glucose 100, high- sensitivity troponin is 119, NT proBNP 2921, TSH 1.157, urinalysis bland with large blood large bilirubin Chest radiograph with no acute abnormalities. Admitted for further care. 11/27: Still in A. fib heart rate in the 90s on p.o. metoprolol. He still feeling very weak. No fevers. CR improved to 1.6, WBC coming down. Discussed with [id number] Ami 11/28 Patient evaluated and examined at bedside. Lab work notably improved. Still feeling pretty weak. Therapy recommending SNF placement. We will continue to work on this and patient can likely discharge in next 24 hours. Vitals/I&O Vitals/I&O: Vital Signs Date Time Temp Pulse Resp B/P (MAP) Pulse Ox O2 Delivery O2 Flow Rate FiO2 11/28/21 08:25 61 159/77 11/28/21 08:00 Room Air 2.0 11/28/21 07:00 98.2 20 98 98.2 I & O 11/27/21 11/27/21 11/28/21 15:00 23:00 07:00 Intake Total 300 ml 300 ml 200 ml Output Total 400 ml 300 ml Balance 300 ml -100 ml -100 ml Physical Exam General: Alert, Cooperative, mild distress Heart: Regular rate Lungs: Clear Abdomen: Normal bowel sounds, Soft, No tenderness, No hepatosplenomegaly, No masses Extremities: No clubbing, No cyanosis, No edema, Normal pulses, No tenderness/swelling Skin: No rashes, No breakdown, No significant lesion Labs Labs: Laboratory Tests Test 11/28/21 03:30 White Blood Count 12.4 x10^3/uL (4.0-11.0) Red Blood Count 3.92 x10^6/uL (4.30-5.70) Hemoglobin 13.1 g/dL (13.0-17.5) Hematocrit 39.5 % (39.0-53.0) Mean Corpuscular Volume 101 fL (79-100) Mean Corpuscular Hemoglobin 33 pg (25-35) Mean Corpuscular Hemoglobin Concent 33 g/dL (31-37) Red Cell Distribution Width 14.3 % (11.5-14.5) Platelet Count 149 x10^3/uL (140-400) Neutrophils (%) (Auto) 79 % (31-73) Lymphocytes (%) (Auto) 12 % (24-48) Monocytes (%) (Auto) 9 % (0-9) Eosinophils (%) (Auto) 0 % (0-3) Basophils (%) (Auto) 0 % (0-3) Neutrophils # (Auto) 9.8 x10^3/uL (1.8-7.7) Lymphocytes # (Auto) 1.5 x10^3/uL (1.0-4.8) Monocytes # (Auto) 1.1 x10^3/uL (0.0-1.1) Eosinophils # (Auto) 0.0 x10^3/uL (0.0-0.7) Basophils # (Auto) 0.0 x10^3/uL (0.0-0.2) Sodium Level 143 mmol/L (136-145) Potassium Level 3.2 mmol/L (3.5-5.1) Chloride Level 107 mmol/L (98-107) Carbon Dioxide Level 24 mmol/L (21-32) Anion Gap 12 (6-14) Blood Urea Nitrogen 35 mg/dL (8-26) Creatinine 1.3 mg/dL (0.7-1.3) Estimated GFR (Cockcroft-Gault) 52.2 Glucose Level 70 mg/dL (70-99) Calcium Level 8.4 mg/dL (8.5-10.1) Assessment and Plan Assessmemt and Plan Problems Medical Problems: (1) Leukocytosis Status: Acute (2) Tachycardia Status: Acute Comment Review of Relevant I have reviewed the following items natalie (where applicable) has been applied. Justifications for Admission Other Justification SANDI CLIFFORD MD Nov 28, 2021 09:47
--- NOTE | 2021-11-28 10:31 | PDOC ---
TRISTEN BECKER CAPACITY ANALYST 11/28/21 1031: CARDIO Progress Notes Date and Time Date of Service 11/28/21 Time of Evaluation 1030 Subjective Subjective: No Chest Pain, No shortness of breath, No Palpitations, No Dizziness Vitals Vitals Vital Signs Date Time Temp Pulse Resp B/P (MAP) Pulse Ox O2 Delivery O2 Flow Rate FiO2 11/28/21 08:25 61 159/77 11/28/21 08:00 Room Air 2.0 11/28/21 07:00 98.2 20 98 98.2 Weight Weight [ ] Input and Output Intake and Output Intake and Output 11/28/21 07:00 Intake Total 800 ml Output Total 700 ml Balance 100 ml Intake Oral 800 ml Output Urine Total 700 ml Laboratory Labs Laboratory Tests Test 11/28/21 03:30 White Blood Count 12.4 x10^3/uL (4.0-11.0) Red Blood Count 3.92 x10^6/uL (4.30-5.70) Hemoglobin 13.1 g/dL (13.0-17.5) Hematocrit 39.5 % (39.0-53.0) Mean Corpuscular Volume 101 fL (79-100) Mean Corpuscular Hemoglobin 33 pg (25-35) Mean Corpuscular Hemoglobin Concent 33 g/dL (31-37) Red Cell Distribution Width 14.3 % (11.5-14.5) Platelet Count 149 x10^3/uL (140-400) Neutrophils (%) (Auto) 79 % (31-73) Lymphocytes (%) (Auto) 12 % (24-48) Monocytes (%) (Auto) 9 % (0-9) Eosinophils (%) (Auto) 0 % (0-3) Basophils (%) (Auto) 0 % (0-3) Neutrophils # (Auto) 9.8 x10^3/uL (1.8-7.7) Lymphocytes # (Auto) 1.5 x10^3/uL (1.0-4.8) Monocytes # (Auto) 1.1 x10^3/uL (0.0-1.1) Eosinophils # (Auto) 0.0 x10^3/uL (0.0-0.7) Basophils # (Auto) 0.0 x10^3/uL (0.0-0.2) Sodium Level 143 mmol/L (136-145) Potassium Level 3.2 mmol/L (3.5-5.1) Chloride Level 107 mmol/L (98-107) Carbon Dioxide Level 24 mmol/L (21-32) Anion Gap 12 (6-14) Blood Urea Nitrogen 35 mg/dL (8-26) Creatinine 1.3 mg/dL (0.7-1.3) Estimated GFR (Cockcroft-Gault) 52.2 Glucose Level 70 mg/dL (70-99) Calcium Level 8.4 mg/dL (8.5-10.1) Microbiology Micro Microbiology 11/26/21 Urine Culture - Final, Complete Physical Exam HEENT: Neck Supple W Full Motion Chest: Symmetric LUNGS: Clear to Auscultation Heart: RRR, irregularly irregular Abdomen: Soft N/T Extremities: No Edema Neurology: alert, oriented, follow commands Assessment Assessment 1. Weakness, dizziness: Less likely to be cardiovascular in origin but cannot rule this out given his age and prior history of SVT. 2. NINA; improved 3. Tachyarrhythmia with h/o of SVT; EKG upon arrival with probable AFIB; presently in SR 4. Hyperlipidemia Recommendations Continue metoprolol for rate control ASA therapy Outpatient echo as arranged Will plan for an outpatient implantable loop recorder for correlation of any symptoms to any arrhythmias. Follow up in our office as scheduled Justicifation of Admission Dx: Justifications for Admission: Justification of Admission Dx: Yes CHF: Cardiac Arrhythmias JULIO CESAR DEVRIES MD 11/28/21 1554: CARDIO Progress Notes Assessment Assessment Patient seen and examined I agree with our nurse practitioners assessment and plan. Weakness, dizziness: Less likely to be cardiovascular in origin but cannot rule this out given his age and prior history of SVT. Continuing present treatment. NINA; improved. Monitoring lab. Tachyarrhythmia with h/o of SVT; EKG upon arrival with probable AFIB; presently in SR. continue metoprolol and aspirin. Outpatient echo and loop recorder. Hyperlipidemia. Continue present treatment. TRISTEN BECKER APRN Nov 28, 2021 10:31 JULIO CESAR DEVRIES MD Nov 28, 2021 15:54
[2021-11-28 10:46] LABS: MAGNESIUM 2.2 mg/dL (1.8-2.4)
[2021-11-28 10:49] LABS: CHOLESTEROL/HDL RATIO 2.6
[2021-11-28 10:50] VITALS: BP 137/81
[2021-11-28 11:21] LABS: INFLUENZA A PATIENT NEGATIVE (NEGATIVE); INFLUENZA B PATIENT NEGATIVE (NEGATIVE)
--- NOTE | 2021-11-28 12:05 | NUR ---
SS following for discahrge planning. SS reviewed pt chart and discussed with pt RN. Pt is from home with spouse and is currently on room air. COVID19 test pending for possible placement. PT/OT recommended residential unit. Cardiology following. SS met with pt and spoke with pt's daughter/Ami GAMING, via phone. Pt's daughter reported that family has been looking into Assisted Living for both pt and spouse and have a meeting at the [facility] at 1730 tonight. Pt's daughter agreeable to residential unit at either [facility], ; fax [phone], or [facility], ; fax [phone]. Pt's daughter reported that she will discuss with pt. Referrals phoned and faxed to facilities. SS will continue to follow for discharge planning.
[2021-11-28 14:00] VITALS: BP 146/74
[2021-11-28 19:10] VITALS: BP 123/73
[2021-11-28] MEDS: PATCH REMOVAL. MC SCH (21:00)
[2021-11-28 23:10] VITALS: BP 119/70
[2021-11-29 02:45] VITALS: BP 125/72
[2021-11-29 07:00] VITALS: BP 145/76
[2021-11-29] MEDS: LIDOCAINE (700MG/PATCH) PATCH. TD SCH (08:10)
[2021-11-29] MEDS: METOPROLOL TART IMMED RELEASE 25 MG TABLET. PO SCH (08:10)
[2021-11-29] MEDS: CYANOCOBALAMIN (VITAMIN B-12) 1,000 MCG TABLET. PO SCH (08:11)
[2021-11-29] MEDS: CHOLECALCIFEROL (VITAMIN D3) 1,000 UNIT TABLET PO SCH (08:11)
[2021-11-29] MEDS: ASPIRIN ENTERIC COATED 81 MG TABLET.DR. PO SCH (08:11)
[2021-11-29] MEDS ORDERED: ENOXAPARIN 40 MG/0.4 ML SYRINGE. SQ SCH (09:00)
--- NOTE | 2021-11-29 09:55 | SNU/HH DC ---
DISCHARGE ORDERS DISCHARGE INFORMATION: DISCHARGE DATE: Nov 29, 2021 FINAL DIAGNOSIS Problems Medical Problems: (1) Leukocytosis Status: Acute (2) Tachycardia Status: Acute CONDITION ON DISCHARGE: Stable CODE STATUS: Code Status: DNR/DNI PENITENTIARY: SNF STAY <30 DAYS: Yes POST DISCHARGE ORDERS: ACTIVITY ORDERS: No restrictions, Activity as tolerated WEIGHT BEARING STATUS: No restrictions, As tolerated BATHING ORDERS: Shower-keep dressing dry, No Tub Bath until see DIET AFTER DISCHARGE: Cardiac WOUND/INCISION CARE: Ice to area for comfort CHECKS AFTER DISCHARGE: CHECKS AFTER DISCHARGE: Check blood press - daily, Check your Temp as needed TREATMENT/EQUIPMENT ORDERS: ADAPTIVE EQUIPMENT NEEDED: None Physical Therapy For: Evalulation/Treatment Occupational Therapy For: Evaluation/Treatment Speech Language Pathology For: Evaluation/Treatment DISCHARGE MEDICATIONS: Home Meds Active Scripts Aspirin (ASPIRIN EC) 81 Mg Tablet.dr, 81 MG PO DAILYWBKFT for heart for 30 Days, #30 TAB.SR Prov:KAYCEE AIKEN MD 02/10/21 Metoprolol Tartrate (METOPROLOL TARTRATE) 25 Mg Tablet, 25 MG PO BID for heart for 30 Days, #60 TAB Prov:KAYCEE AIKEN MD 02/10/21 Reported Medications Cyanocobalamin (Vitamin B-12) (B-12) 1,000 Mcg Tablet, 1 TAB PO DAILY for for 30 Days, #30 TAB 0 Refills 02/09/21 Dextrin (FIBER) 350 Gm Powder, 350 GM PO DAILY 06/17/14 Cholecalciferol (Vitamin D3) (VITAMIN D3) 1,000 Unit Tablet, 1 TAB PO DAILY, #30 TAB 5 Refills 06/17/14 SANDI CLIFFORD MD Nov 29, 2021 09:55
[2021-11-29 11:00] VITALS: BP 106/70
--- NOTE | 2021-11-29 11:12 | PDOC3 ---
[facility]-Discharge Summary Date of Admission: Date of Admission: Nov 26, 2021 Date of Discharge: Date of Discharge: Nov 29, 2021 Admission Diagnosis: Problems: (1) Leukocytosis (2) Tachycardia Discharge Diagnosis: Discharge Diagnosis: Víctor,e Consults: Consults: Cardiology Hospital Course: Hospital Course: Chief Complaint Afib with RVR - Initial telemetry in the 170s with systolic blood pressure in the 70s scattered P waves given 10 mg IV Cardizem and heart rate came into the 90s and systolic blood pressure into the 120s. Will restart home metoprolol given quick improvement. lovenox as well. Cardiology consult Weakness - possibly due to afib, dehydration, progressive dementia NINA - likely vasomotor nephropathy from dehydration, poor self care, afib Leukocytosis - no clear etiology, though SVT/Afib acutely could be etiology, will f/u culture results, hold off on further antibiotics given his BP improvement with cardizem GERD - ppi HLD - statin Mild cognitive impairment/early dementia - may consider memantine. Given weakness and recent fall and afib donepezil would be higher risk HTN - cont metoprolol FEN - Cardiac diet PPX - lovenox Code - DNR/DNI Dispo - inpatient Surrogate decision maker and DPOA is [id number], Ami History of Present Illness History of Present Illness Mr Irwin is an 86yo male with PMhx GERD, HLD, mild cognitive impairment, HTN who comes to ED via EMS accompanied by his tzppycki-qh-uyk, Ami, for worsening confusion and weakness that significantly worsened over the last day prior to presentation, was difficult to arouse. His only complaint is weakness for the past week and some intermittent confusion. His granddaughter notes he was previously seen and given metoprolol she is concerned he has been taking it. Was admitted for syncope and SVT 9 months prior to this visit and had been given metoprolol. Initial telemetry in the 170s with systolic blood pressure in the 70s scattered P waves given 10 mg IV Cardizem and heart rate came into the 90s and systolic blood pressure into the 120s. His mental status improved after his HR improved. At that time his only complaints were some low back pain and weakness. no focal neurologic deficits. He did have a fall onto his backside about 6 weeks prior to presentation and normally gets around with a walker at home, but has been more forgetful about this lately. He is fully vaccinated against COVID 19, cannot recall if he had a booster vaccine, his daughter in law thinks so. WBC 24.1, Hb 14, platelets 189, NA 136, K3.9, BUN 49, CR 2.3, glucose 100, high- sensitivity troponin is 119, NT proBNP 2921, TSH 1.157, urinalysis bland with large blood large bilirubin Chest radiograph with no acute abnormalities. Admitted for further care. 11/27: Still in A. fib heart rate in the 90s on p.o. metoprolol. He still feeling very weak. No fevers. CR improved to 1.6, WBC coming down. Discussed with [id number] Ami 11/28 Patient evaluated and examined at bedside. Lab work notably improved. Still feeling pretty weak. Therapy recommending SNF placement. We will continue to work on this and patient can likely discharge in next 24 hours. 11/29 Evaluated and examined at bedside. Doing well today. D/c to facility once found. Greater than 30 min spent on d/c. Disposition: Disposition/Orders: D/C to Another Facility Activity: Activity: Resume previous activity Diet: Diet: Cardiac Medications: Home Meds Active Scripts Aspirin (ASPIRIN EC) 81 Mg Tablet., 81 MG PO DAILYWBKFT for heart for 30 Days, #30 TAB.SR Prov:KAYCEE AIKEN MD 02/10/21 Metoprolol Tartrate (METOPROLOL TARTRATE) 25 Mg Tablet, 25 MG PO BID for heart for 30 Days, #60 TAB Prov:KAYCEE AIKEN MD 02/10/21 Reported Medications Cyanocobalamin (Vitamin B-12) (B-12) 1,000 Mcg Tablet, 1 TAB PO DAILY for for 30 Days, #30 TAB 0 Refills 02/09/21 Dextrin (FIBER) 350 Gm Powder, 350 GM PO DAILY 06/17/14 Cholecalciferol (Vitamin D3) (VITAMIN D3) 1,000 Unit Tablet, 1 TAB PO DAILY, #30 TAB 5 Refills 06/17/14 Scheduled Aspirin (Aspirin Ec), 81 MG PO DAILYWBKFT Cholecalciferol (Vitamin D3) (Vitamin D3), 1 TAB PO DAILY, (Reported) Cyanocobalamin (Vitamin B-12) (B-12), 1 TAB PO DAILY, (Reported) Dextrin (Fiber), 350 GM PO DAILY, (Reported) Metoprolol Tartrate (Metoprolol Tartrate), 25 MG PO BID Justicifation of Admission Dx: Justifications for Admission: Justification of Admission Dx: Yes CHF: Cardiac Arrhythmias SANDI CLIFFORD MD Nov 29, 2021 11:12
--- NOTE | 2021-11-29 12:22 | PDOC ---
CARDIO Progress Notes Date and Time Date of Service 11/29/21 Time of Evaluation 1230 Subjective Subjective: No Chest Pain, No shortness of breath, No Palpitations, No Dizziness Vitals Vitals Vital Signs Date Time Temp Pulse Resp B/P (MAP) Pulse Ox O2 Delivery O2 Flow Rate FiO2 11/29/21 11:00 97.4 70 18 106/70 (82) 98 Room Air 97.4 11/29/21 08:00 2.0 Weight Weight [ ] Input and Output Intake and Output Intake and Output 11/29/21 07:00 Intake Total 780 ml Output Total 300 ml Balance 480 ml Intake Oral 780 ml Output Urine Total 300 ml Microbiology Micro Microbiology 11/26/21 Urine Culture - Final, Complete Physical Exam HEENT: Neck Supple W Full Motion Chest: Symmetric LUNGS: Clear to Auscultation Heart: RRR, irregularly irregular Abdomen: Soft N/T Extremities: No Edema Neurology: alert, oriented, follow commands Assessment Assessment 1. Weakness, dizziness: Less likely to be cardiovascular in origin but cannot rule this out given his age and prior history of SVT. 2. NINA; improved 3. Tachyarrhythmia with h/o of SVT; EKG upon arrival with probable AFIB; presently in SR 4. Hyperlipidemia Recommendations Continue metoprolol for rate control ASA therapy Outpatient echo as arranged Will plan for an outpatient implantable loop recorder for correlation of any symptoms to any arrhythmias. Follow up in our office as scheduled Justicifation of Admission Dx: Justifications for Admission: Justification of Admission Dx: Yes CHF: Cardiac Arrhythmias TRISTEN BECKER APRN Nov 29, 2021 12:22
--- NOTE | 2021-11-29 12:24 | NUR ---
SS following up with discharge planning. SS reviewed pt chart and discussed with pt RN. Pt is currently on room air. COVID19 negative. PT/OT recommended [facility] unit. Pt accepted at [facility]. Discharge orders received for [facility] unit. SS met with pt's daughter/AMBERLY Ami, and discussed discharge. Pt's daughter reported that she would like pt to discharge to [facility], ; fax [phone], for [facility] unit and then move into the [facility] with spouse. Pt's daughter reported that contracts have been signed with the [facility]. Discharge orders received for [facility] unit and phoned and faxed to [facility]. Pt will discharge today and go to [facility] at [facility]. [facility] to provide transportation. Pt, pt's RN, and pt's family notified.
--- NOTE | 2021-11-29 13:30 | NUR ---
ATTEMPTED ONCE TO GIVE REPORT TO [facility], ON HOLD FOR MORE THAN FIVE MINUTES. LEFT MESSAGE TO STAFF, JOSÉ MIGUEL, CALL THIS RN BACK WHEN AVAILABLE.
--- NOTE | 2021-11-29 14:14 | NUR ---
DISCHARGED PATIENT TO [facility]. PIV AND HEART MONITOR REMOVED. ESCORTED PATIENT OFF UNIT PER TRANSPORTATION VIA WHEELCHAIR.
== END 2021-11-29 14:16 | DRG 640 ==
LOC: ER 15:40 → ED HOLD 18:00 → 6 SOUTH 21:01
PROVIDERS: ADMIT Internal Medicine; ATTEND Internal Medicine
DX: E86.0 Dehydration (principal); N17.0 Acute kidney failure with tubular necrosis; I48.91 Unspecified atrial fibrillation; E78.00 Pure hypercholesterolemia, unspecified; E78.5 Hyperlipidemia, unspecified; F03.90 Unspecified dementia, unspecified severity, without behavioral disturbance, psychotic disturbance, mood disturbance, and anxiety; I10 Essential (primary) hypertension; K21.9 Gastro-esophageal reflux disease without esophagitis; Z66 Do not resuscitate; Z87.891 Personal history of nicotine dependence
CPT/HCPCS: 36415; 71045; 80048; 80061; 81001; 82607; 83735; 83880; 84443; 84484; 85007; 85025; 87086; 87428; 93005; 96361; 96374; 96375; J0696; J1650; J3490; J7030; U0003; U0005; 97116-GP; 97535-GO; 99285-25; G0378